=== PATIENT | female | born 1990 | race Caucasian/White ===

== ENCOUNTER 2022-07-07 15:54 | Outpatient (CLI) | payer OTHER, SELFPAY ==
--- NOTE | 2022-07-07 16:00 | CRLHL7_ITS ---
For Patients: As a result of the Century Cures Act, medical imaging exams and procedure reports are released immediately into your electronic medical record. You may view this report before your referring provider. If you have questions, please contact your health care provider. INDICATION: First trimester scan, establish dates. LMP 05/04/2022. COMPARISON: None. TECHNIQUE: Real-time lao-scale imaging of the pelvis was performed. FINDINGS: Sonographic imaging demonstrates a single living intrauterine gestation. The embryo has a regular cardiac rate measuring 168 beats per minute. The embryo`s crown-rump length measurement of 2.2 cm corresponds to a gestational age of 8 weeks 6 days with a sonographic due date of 02/10/2023. There is a normal-appearing yolk sac. There is a 0.4 x 0.1 x 0.2 cm umbilical cord cyst. The placenta has not yet developed. There is a 1.1 x 0.8 x 0.5 cm subchorionic hemorrhage along the superior aspect of the gestational sac. Retroverted uterus. The cervix appears closed. The right ovary measures 2.7 x 1.3 x 1.2 cm and the left ovary measures 3.1 x 2.0 x 1.7 cm. There is a 1.5 cm corpus luteum in the left ovary. No free fluid in the cul-de-sac. IMPRESSION: 1. Single living intrauterine gestation with crown rump length 2.2 cm which corresponds to a gestational age of 8 weeks 6 days with a sonographic due date of 02/10/2023. 2. The clinical gestational age by LMP is 9 weeks 1 day. 3. Small subchorionic hemorrhage. 4. Subcentimeter umbilical cord cyst. Dictated by Erin Ruvalcaba MD @ 07/07/2022 8:54:40 PM (Electronically Signed)
== END 2022-07-07 15:55 | disposition home or self-care (01) ==
LOC: US 15:55
PROVIDERS: Visit Provider Physician Assistant
DX: Z34.91 Encounter for supervision of normal pregnancy, unspecified, first trimester (principal); O20.9 Hemorrhage in early pregnancy, unspecified; Z3A.09 9 weeks gestation of pregnancy
CPT/HCPCS: 76817; 80076; 86592; 86703; 86762; 86787; 86803; 86850; 86900; 86901; 87086; 87340; 87491; 87591

== ENCOUNTER 2022-07-23 15:15 | Outpatient (CLI) | payer OTHER, SELFPAY ==
[2022-07-23 16:23] LABS: Chloride* 107 mmol/L (96-114); Sodium* 138 mmol/L (135-149)
[2022-07-23 16:24] LABS: Potassium* 3.8 mmol/L (3.6-5.1)
[2022-07-23 16:26] LABS: Carbon Dioxide* 24 mmol/L (20-32); Creatinine* 0.5 mg/dL (0.5-1.5); Estimated Glomerular Filt Rate 129 ml/min
[2022-07-23 16:27] LABS: Blood Urea Nitrogen* 9 mg/dL (5-24); Calcium* 9.4 mg/dL (8.4-10.6); Glucose* 95 mg/dL (60-115)
== END 2022-07-23 15:16 | disposition home or self-care (01) ==
PROVIDERS: Visit Provider Obstetrics & Gynecology
DX: O21.1 Hyperemesis gravidarum with metabolic disturbance (principal)
CPT/HCPCS: 80048

== ENCOUNTER 2022-07-24 09:46 | Outpatient (CLI) | payer OTHER, SELFPAY ==
[2022-07-24 09:59] VITALS: BP 113/75; PULSE 97; RESP 16; O2SAT 93
--- NOTE | 2022-07-24 10:15 | CRLHL7_ITS ---
For Patients: As a result of the Century Cures Act, medical imaging exams and procedure reports are released immediately into your electronic medical record. You may view this report before your referring provider. If you have questions, please contact your health care provider. Indication: PICC placement Technique: Chest 1 view Comparison: None Findings/Impression: Cardiovascular and mediastinum: Heart size and vasculature are normal in caliber and appearance. Mediastinum is within normal limits. Left-sided PICC is at the junction of the superior vena cava and right atrium. Lungs and pleural space: Lungs are clear. No sign of infiltrate or mass. No sign of pleural effusion. No pneumothorax. Bones and soft tissues: No significant findings. Dictated by Ramón Scruggs MD @ 07/24/2022 11:34:01 AM (Electronically Signed)
--- NOTE | 2022-07-24 10:15 | CRLHL7_ITS ---
For Patients: As a result of the Cures Act, medical imaging exams and procedure reports are released immediately into your electronic medical record. You may view this report before your referring provider. If you have questions, please contact your health care provider. Indication: Hyperemesis Technique: Sonographic images of the left basilic vein and left internal jugular vein submitted. IMPRESSION: Sonographic guidance for left arm PICC line placement. Dictated by Evens Marmolejo MD @ 07/24/2022 11:23:23 AM (Electronically Signed)
[2022-07-24] MEDS: MULTIPLE VITAMINS INJECTION 10 ML in LACTATED RINGERS 1000 ML 1,000 ML 505 ML IV (11:47)
[2022-07-24] MEDS: ONDANSETRON 2 MG/ML inj 4 MG IVP (11:50)
[2022-07-24 13:01] VITALS: BP 121/80; PULSE 81; RESP 16; O2SAT 99
== END 2022-07-24 13:02 | disposition home or self-care (01) ==
PROVIDERS: Visit Provider Obstetrics & Gynecology
DX: O21.1 Hyperemesis gravidarum with metabolic disturbance (principal)
CPT/HCPCS: 36573; C1751; J2405; J7120

== ENCOUNTER 2022-07-26 20:28 | Emergency (ER) | payer OTHER, SELFPAY ==
[2022-07-26 20:52] VITALS: BP 138/84; PULSE 95; RESP 18; TEMP 36.7; O2SAT 97; BMI 24.2
--- NOTE | 2022-07-26 21:44 | ED.GENADULT ---
HPI - General Adult General Time Seen by Provider: 21:44 Date Seen: 07/26/22 Chief complaint: Unspecified Complaint, Adult Stated complaint: Chest Pain+Pic Line+ Time Seen by Provider: 07/26/22 21:34 Source: patient Mode of arrival: ambulatory Limitations: no limitations History of Present Illness HPI narrative: Patient is a pleasant 32-year-old female who has had hyperemesis she has a PICC line in her left arm she had some tenderness to her chest and the nursing staff wanted her checked out. She has had no leg swelling edema had no shortness of breath, her O2 sat here is excellent at 97%. She denied any bleeding or clotting problems. She has had no fevers chills cough. She has been doing well with her other than the hyperemesis. Skin Zofran as well. Related Data Home Medications Medication Instructions Recorded Confirmed docosahexaenoic acid 200 mg mg PO 07/07/22 07/07/22 capsule ( DHA) Previous Rx's Medication Instructions Recorded ondansetron HCl 4 mg tablet 4 mg PO Q6H PRN nausea and 06/26/22 vomiting #30 tabs ondansetron HCl 8 mg tablet 8 mg PO Q8H PRN nausea and 07/07/22 vomiting #30 tabs promethazine 25 mg tablet 25 mg PO Q6H PRN nausea and 07/17/22 vomiting #30 tabs Allergies Allergy/AdvReac Type Severity Reaction Status Date / Time No Known Drug Allergies Allergy Verified 07/26/22 20:57 Review of Systems Status of ROS: Reports: 6 or more systems reviewed and unremarkable except as noted in History and below PFSH PFSH Medical History Digestive problems Exercise-induced asthma Generalized anxiety disorder History of abnormal cervical Papanicolaou smear History of cholestasis during History of Clostridioides difficile colitis History of hemorrhage History of vaginal delivery History of varicella Hyperemesis gravidarum with dehydration Nausea and vomiting during (06/2021) depression Surgical History History of colonoscopy History of third molar tooth extraction History of tonsillectomy Family History Aunt Ovarian cancer Paternal Grandfather High cholesterol Aunt Breast cancer 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 . Smoking Status: Smoker, status unknown Little interest or pleasure in doing things: nearly every day Feeling down, depressed, or hopeless: not at all Exam Narrative: Exam Narrative: Objective: Patient's vital signs are unremarkable O2 sat is excellent 97% in general she is in no apparent distress, noncyanotic HEENT is no facial asymmetry neck is supple chest is clear no rales or wheezing, heart rhythm regular without murmur. With nursing staff present cardiac examination was normal, she does have chest wall palpation tenderness over the left midclavicular line just above the breast line on the left. It is diffuse. No crepitus. Feels similar to what she is experiencing. Lower extremities show no swelling edema Vital signs unremarkable as mention. Const: Vital Signs, click to edit/add: Vital Signs - 24 hr 07/26/22 20:52 07/26/22 21:52 Temperature 98.1 F 98.1 F Pulse Rate [Pulse Oximeter] 95 95 Respiratory Rate 18 18 Blood Pressure [Ri ght Upper Arm] 138/84 138/84 Pulse Oximetry 97 Oxygen Delivery Me thod Room Air Course Vital Signs Vital signs: Initial Vital Signs Temperature 98.1 F 07/26/22 20:52 Temperature Source Temporal Artery Scan 07/26/22 20:52 Pulse Rate 95 07/26/22 20:52 Pulse Rhythm 07/26/22 20:52 Respiratory Rate 18 07/26/22 20:52 Blood Pressure 138/84 07/26/22 20:52 Blood Pressure Mean 102 07/26/22 20:52 Blood Pressure Position Sitting 07/26/22 20:52 Pulse Oximetry 97 07/26/22 20:52 Oxygen Delivery Method 07/26/22 20:52 Vital Signs Temperature 98.1 F 07/26/22 20:52 Pulse Rate 95 07/26/22 20:52 Respiratory Rate 18 07/26/22 20:52 Blood Pressure 138/84 07/26/22 20:52 Pulse Oximetry 97 07/26/22 20:52 Oxygen Delivery Method 07/26/22 20:52 Temperature 98.1 F 07/26/22 21:52 Pulse Rate 95 07/26/22 21:52 Respiratory Rate 18 07/26/22 21:52 Blood Pressure 138/84 07/26/22 21:52 Pulse Oximetry 97 07/26/22 20:52 Oxygen Delivery Method 07/26/22 20:52 Medical Decision Making [facility] Narrative Medical decision making narrative: Patient is 12 weeks estimated gestational age with the with him history of hyperemesis, with a PICC line. The PICC line itself looks very good is in good position, Bailee has normal lung exam and cardiac exam. She does have definite chest wall tenderness on the left side of the chest wall. There is no oozing ecchymosis no crepitus. No history of trauma. Lower extremities show no swelling or edema At this point I think this is a soft tissue chest wall inflammation inflammatory condition. The PICC line looks intact. It has been flushing well. I think I would not re-x-ray she just had an x-ray PICC line. There does appear to have been any positional change. Recommend monitoring observation Tylenol and warm pack to the chest wall if she has continued problems or concerns she can always return to the ED Discharge Plan Discharge Clinical Impression: Acute chest wall pain, Patient Disposition: Home, Self-Care Condition: Stable Additional Instructions: Observe, warm pack to the chest, Tylenol, update OB in the next 12:48 p.m., certainly sooner changes or concerns can always return to the ED. Activity Level: Light activity Discharge Diet: Regular Prescriptions: No Action DHA 200 mg capsule PO ondansetron HCl 8 mg tablet 8 mg PO Q8H PRN (Reason: nausea and vomiting) Qty: 30 1RF ondansetron HCl 4 mg tablet 4 mg PO Q6H PRN (Reason: nausea and vomiting) Qty: 30 0RF promethazine 25 mg tablet 25 mg PO Q6H PRN (Reason: nausea and vomiting) Qty: 30 1RF Follow Up/Referrals: Provider,Not a Local [Primary Care Provider] - Stand Alone Forms: [employer] Info Instructions
[2022-07-26 21:52] VITALS: BP 138/84; PULSE 95; RESP 18; TEMP 36.7
== END 2022-07-26 21:54 | disposition home or self-care (01) ==
LOC: ED 21:49
PROVIDERS: Emergency Provider Family Medicine
DX: R07.89 Other chest pain (principal); Z3A.12 12 weeks gestation of pregnancy
CPT/HCPCS: 99283

== ENCOUNTER 2022-07-28 15:56 | Outpatient (CLI) | payer OTHER, SELFPAY ==
--- NOTE | 2022-07-28 16:00 | CRLHL7_ITS ---
For Patients: As a result of the Century Cures Act, medical imaging exams and procedure reports are released immediately into your electronic medical record. You may view this report before your referring provider. If you have questions, please contact your health care provider. INDICATION: Follow-up umbilical cord cyst COMPARISON: 07/07/2022 TECHNIQUE: Real-time lao-scale imaging of the pelvis was performed. FINDINGS: Sonographic imaging demonstrates a single living intrauterine gestation. The embryo demonstrates a regular cardiac rate measuring 165 beats per minute. The embryo`s crown-rump length measurement of 5.6 cm corresponds to a gestational age of 12 weeks 2 days with a sonographic due date of 02/07/2023. The yolk sac is not visualized. There are no gross abnormalities noted within the embryo at this early state of development. Previously noted umbilical cord cyst has since resolved. The gestational sac has a normal appearance. Resolution of the previously noted perigestational hemorrhage. The amount of fluid within the sac appears appropriate for gestational age. IMPRESSION: Resolution of previously noted umbilical cord cyst and subchorionic hemorrhage. Dictated by Evens Marmolejo MD @ 07/29/2022 3:36:29 PM (Electronically Signed)
== END 2022-07-28 15:57 | disposition home or self-care (01) ==
LOC: US 15:56
PROVIDERS: Visit Provider Physician Assistant
DX: O36.8990 Maternal care for other specified fetal problems, unspecified trimester, not applicable or unspecified (principal)
CPT/HCPCS: 76816

== ENCOUNTER 2022-08-12 14:51 | Emergency (ER) | payer OTHER, SELFPAY ==
[2022-08-12 15:12] VITALS: BP 113/74; PULSE 78; RESP 16; TEMP 36.5; O2SAT 97; BMI 24.5
--- NOTE | 2022-08-12 15:28 | PC.NURSE ---
Called PICC STAT ([phone])- Left message to see if they are able to order an X-ray to see if PICC has been pulled out or if patient is able to use PICC. They should be calling back shortly per the manager outreach who took the phone call.
--- NOTE | 2022-08-12 15:44 | CRLHL7_ITS ---
For Patients: As a result of the Century Cures Act, medical imaging exams and procedure reports are released immediately into your electronic medical record. You may view this report before your referring provider. If you have questions, please contact your health care provider. INDICATION: PICC line placement confirmation. TECHNIQUE: Chest 1 view(s) COMPARISON: Chest radiograph dated 07/24/2022. FINDINGS/IMPRESSION: Left PICC tip projects over the upper to mid SVC. Cardiomediastinal silhouette and pulmonary vasculature are normal. No focal consolidation. No significant layering pleural effusion, no pneumothorax. Dictated by Leigh Murdock MD @ 08/12/2022 4:19:31 PM (Electronically Signed)
--- NOTE | 2022-08-12 15:50 | ED.GENADULT ---
HPI - General Adult General Time Seen by Provider: 15:50 Date Seen: 08/12/22 Stated complaint: Picc Line Issues Time Seen by Provider: 08/12/22 15:26 Source: patient Mode of arrival: ambulatory Limitations: no limitations History of Present Illness HPI narrative: Bailee is a 32-year-old GP 2p1 at around 14 weeks presents emerged department via private car with PICC line problem. Patient states in her 1st she had hyperemesis gravidarum for about 3 weeks, this pain has persisted, she has had a PICC line in for 19 days, she has a home nurse that checks on it, nurse noticed there was some bleeding and that it was pulled back about 3.5 cm, concerns about placement she was sent emergency department. Patient has been doing well otherwise. No concerns. Related Data Home Medications Medication Instructions Recorded Confirmed docosahexaenoic acid 200 mg mg PO 07/07/22 07/28/22 capsule ( DHA) Previous Rx's Medication Instructions Recorded promethazine 25 mg tablet 25 mg PO Q6H PRN nausea and 07/17/22 vomiting #30 tabs Allergies Allergy/AdvReac Type Severity Reaction Status Date / Time No Known Drug Allergies Allergy Verified 08/12/22 15:20 Review of Systems Status of ROS: Reports: 10 or more systems reviewed and unremarkable except as noted in History and below PFSH PFS Medical History Digestive problems Exercise-induced asthma Generalized anxiety disorder History of abnormal cervical Papanicolaou smear History of cholestasis during History of Clostridioides difficile colitis History of hemorrhage History of vaginal delivery History of varicella Hyperemesis gravidarum with dehydration Nausea and vomiting during (06/2021) depression Surgical History History of colonoscopy History of third molar tooth extraction History of tonsillectomy Family History Aunt Ovarian cancer Paternal Grandfather High cholesterol Aunt Breast cancer 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 Little interest or pleasure in doing things: nearly every day Feeling down, depressed, or hopeless: not at all Exam Narrative: Exam Narrative: General: No obvious distress, laying comfortably HEENT: Pupils equal round reactive to light, extraocular muscles intact Neck: Supple, full range of motion Lungs: Clear to auscultation bilaterally Heart: Normal sinus rhythm S1-S2 Abdomen: Nontender to palpation Muscle skeletal: PICC line placed in the left antecubital, no swelling, bruising or bleeding Neuro: Alert awake and oriented x3 Const: Vital Signs, click to edit/add: Vital Signs - 24 hr 08/12/22 15:12 Temperature 97.7 F Pulse Rate [Pulse Oximeter] 78 Respiratory Rate 16 Blood Pressure [Ri ght Upper Arm] 113/74 Pulse Oximetry 97 Oxygen Delivery Me thod Room Air Course Course Hospital Course: 4:00 pM: AIDET performed. Vitals are normal at this time, workup will include a XR chest portable one view to make sure proper placement of PICC line. No other labs to be done obtain at this time. Reevaluation(s) Reevaluation #1: patient updated on her imaging results. FINDINGS/IMPRESSION: Left PICC tip projects over the upper to mid SVC. Cardiomediastinal silhouette and pulmonary vasculature are normal. No focal consolidation. No significant layering pleural effusion, no pneumothorax. Time: 16:24 Reevaluation #2: PICC line is found to be in the upper to mid SVC, patient would be able to use this for IV fluids, per PICC line RN, able to flush line at this time. They will reach out to her tomorrow. Plan to discharge home, she should follow up as scheduled for IV infusions and scheduled OB appointments, reasons return given. Time: 16:51 Vital Signs Vital signs: Initial Vital Signs Temperature 97.7 F 08/12/22 15:12 Temperature Source Temporal Artery Scan 08/12/22 15:12 Pulse Rate 78 08/12/22 15:12 Pulse Rhythm 08/12/22 15:12 Pulse Strength 3+ Normal 08/12/22 15:12 Respiratory Rate 16 08/12/22 15:12 Blood Pressure 113/74 08/12/22 15:12 Blood Pressure Mean 87 08/12/22 15:12 Blood Pressure Position Sitting 08/12/22 15:12 Pulse Oximetry 97 08/12/22 15:12 Oxygen Delivery Method 08/12/22 15:12 Vital Signs Temperature 97.7 F 08/12/22 15:12 Pulse Rate 78 08/12/22 15:12 Respiratory Rate 16 08/12/22 15:12 Blood Pressure 113/74 08/12/22 15:12 Pulse Oximetry 97 08/12/22 15:12 Oxygen Delivery Method 08/12/22 15:12 Temperature 97.7 F 08/12/22 15:12 Pulse Rate 78 08/12/22 15:12 Respiratory Rate 16 08/12/22 15:12 Blood Pressure 113/74 08/12/22 15:12 Pulse Oximetry 97 08/12/22 15:12 Oxygen Delivery Method 08/12/22 15:12 Discharge Plan Discharge Clinical Impression: S/P PICC central line placement Patient Disposition: Home, Self-Care Condition: Improved Instructions: How to Care for Your PICC (Peripherally Inserted Central Catheter) (ED) Prescriptions: No Action DHA 200 mg capsule PO Hold Instructions: Doctor's Order promethazine 25 mg tablet 25 mg PO Q6H PRN (Reason: nausea and vomiting) Qty: 30 1RF Hold Instructions: Order Change Follow Up/Referrals: Provider,Not a Local [Primary Care Provider] - Stand Alone Forms: [employer] Info Instructions
--- NOTE | 2022-08-12 16:50 | ED.NURSE ---
Call to PICC with XR result tip placement upper to mid SVC. Per PICC, ok to use for now for fluids as long as line has good blood return. PICC will reach out to patient and discuss line exchange as preferred placement is mid to low SVC. Dr. Duran and Pt updated.
== END 2022-08-12 17:16 | disposition home or self-care (01) ==
PROVIDERS: Emergency Provider Student in an Organized Health Care Education/Training Program
DX: T82.594A Other mechanical complication of infusion catheter, initial encounter (principal); Z3A.14 14 weeks gestation of pregnancy
CPT/HCPCS: 71045; 99283; 99284

== ENCOUNTER 2022-08-14 07:10 | Outpatient (CLI) | payer OTHER, SELFPAY ==
[2022-08-14 07:15] VITALS: BP 108/89; PULSE 83; RESP 16; TEMP 37; O2SAT 96
--- NOTE | 2022-08-14 07:15 | CRLHL7_ITS ---
For Patients: As a result of the Century Cures Act, medical imaging exams and procedure reports are released immediately into your electronic medical record. You may view this report before your referring provider. If you have questions, please contact your health care provider. INDICATION: Line placement. TECHNIQUE: AP portable seated chest x-ray. COMPARISON: August 12, 2022. FINDINGS: Left PICC line with its tip in the low superior vena cava. Clear lungs. Normal heart size. Normal included skeleton. IMPRESSION: Left PICC line with its tip in the low superior vena cava. Dictated by Reji Calle MD @ 08/14/2022 9:11:10 AM (Electronically Signed)
--- NOTE | 2022-08-14 07:15 | CRLHL7_ITS ---
For Patients: As a result of the Cures Act, medical imaging exams and procedure reports are released immediately into your electronic medical record. You may view this report before your referring provider. If you have questions, please contact your health care provider. INDICATION: Replace current left-sided PICC line. TECHNIQUE: Ultrasound guidance was utilized for replacement of the left-sided PICC line. FINDINGS : A single spot image was obtained of the left basilic vein by report. Ultrasound-guided assistance was utilized for replacement of a left PICC line. IMPRESSION: Ultrasound-guided assistance for left PICC line replacement. Dictated by Reji Calle MD @ 08/14/2022 10:20:54 AM (Electronically Signed)
[2022-08-14] MEDS: MULTIPLE VITAMINS INJECTION 10 ML in LACTATED RINGERS 1000 ML 1,000 ML 505 ML IV (09:25)
== END 2022-08-14 11:25 | disposition home or self-care (01) ==
PROVIDERS: Visit Provider Obstetrics & Gynecology
DX: O21.1 Hyperemesis gravidarum with metabolic disturbance (principal); Z3A.14 14 weeks gestation of pregnancy
CPT/HCPCS: 36573; C1751; J2405; J7120

== ENCOUNTER 2022-09-22 13:55 | Outpatient (CLI) | payer OTHER, SELFPAY ==
--- NOTE | 2022-09-22 14:00 | CRLHL7_ITS ---
For Patients: As a result of the Century Cures Act, medical imaging exams and procedure reports are released immediately into your electronic medical record. You may view this report before your referring provider. If you have questions, please contact your health care provider. INDICATION: Evaluate anatomy. COMPARISON: 07/28/2022, 07/07/2022 TECHNIQUE: Real time lao scale imaging of the fetus was performed as well as color Doppler analysis of the umbilical vessels. FINDINGS: Sonographic imaging demonstrates a single living intrauterine gestation. Fetus demonstrates a regular cardiac rate of 149 beats per minute. Fetus has a breech position. The placenta lies anteriorly without evidence of placenta previa. The edge of the placenta is located 5.5 cm from the internal cervical os. Amniotic fluid volume appears normal. Single deepest vertical pocket: 4.3 cm. The cervix is closed and measures 3.7 cm in length. The composite ultrasound gestational age is calculated at 20 weeks 0 days with an estimated sonographic due date of 02/09/2023. The estimated weight is 344 grams which lies at the 54th %. The following biometric measurements were obtained: Biparietal diameter: 4.6 cm/19 weeks 5 days 34th% Head circumference: 16.7 cm/19 weeks 3 days 12th% Abdominal circumference: 15.5 cm/20 weeks 4 days 61st% Femur length: 3.3 cm/20 weeks 1 day 43rd% The HC/AC ratio measures: 1.08 range (1.08-1.25) On anatomic survey, there is a normal appearance of the cerebral ventricles, cavum septi pellucidi, cisterna magna and cerebellum. The nose, lips, and facial profile appear normal. The cervical, thoracic and lumbar spine are well visualized and appear normal. There is a normal four-chamber heart view and the left and right ventricular outflow tracts appear normal. The diaphragm and stomach appear normal. The kidneys and bladder also appear normal. There is a normal three-vessel cord and cord insertion site. The four extremities appear normal. IMPRESSION: Normal OB ultrasound exam with concordance of clinical and sonographic dating. No intrinsic abnormalities noted on anatomic survey. Dictated by Evens Marmolejo MD @ 09/22/2022 3:31:06 PM (Electronically Signed)
== END 2022-09-22 13:56 | disposition home or self-care (01) ==
LOC: US 13:56
PROVIDERS: Visit Provider Advanced Practice Midwife
DX: Z34.92 Encounter for supervision of normal pregnancy, unspecified, second trimester (principal); Z3A.20 20 weeks gestation of pregnancy
CPT/HCPCS: 76805; 87210

== ENCOUNTER 2022-09-28 13:55 | Outpatient (CLI) | payer OTHER, SELFPAY ==
[2022-10-01 10:31] LABS: HSV 1 Subtype by PCR Not Detected; HSV 2 Subtype by PCR Not Detected; Herpes Simplex Subtype Source vaginal
== END 2022-09-28 13:56 | disposition home or self-care (01) ==
PROVIDERS: Visit Provider Advanced Practice Midwife
DX: Z34.92 Encounter for supervision of normal pregnancy, unspecified, second trimester (principal); Z3A.21 21 weeks gestation of pregnancy
CPT/HCPCS: 87210; 87529

== ENCOUNTER 2022-10-16 13:59 | Emergency (ER) | payer OTHER, SELFPAY ==
[2022-10-16 14:14] VITALS: BP 106/68; PULSE 102; RESP 16; TEMP 36.8; O2SAT 97; BMI 27.3
--- NOTE | 2022-10-16 14:24 | CRLHL7_ITS ---
For Patients: As a result of the Century Cures Act, medical imaging exams and procedure reports are released immediately into your electronic medical record. You may view this report before your referring provider. If you have questions, please contact your health care provider. INDICATION: PICC location. TECHNIQUE: Chest 1 views. COMPARISON: July 2022. FINDINGS: Left-sided PICC with tip overlying the expected location of the mid SVC. Lungs: Low lung volumes. No consolidation. The tracheobronchial tree and hilar structures are unremarkable. Pleura: No pleural effusion or pneumothorax. Heart and Mediastinum: Normal heart size. The great vessels of the thorax are unremarkable. Bones: No acute displaced osseous process. IMPRESSION: No consolidation. Left-sided PICC with tip overlying the expected location of the mid SVC. Dictated by Evens Gan MD @ 10/16/2022 3:09:51 PM (Electronically Signed)
--- NOTE | 2022-10-16 16:38 | ED_ITS ---
HPI - General Adult General Chief complaint: Unspecified Complaint, Adult Stated complaint: Picc Line Time Seen by Provider: 10/16/22 14:02 Source: patient Mode of arrival: ambulatory Limitations: no limitations History of Present Illness HPI narrative: female coming in today concerned about her PICC line placement.? She was seen by her PICC line nurse today who commented that the PICC line had been pulled approximately 3 cm from where it had been previously.? Patient comes in today for a x-ray.? She has no concerns.? She continues to get 2 L of fluids daily. Related Data Home Medications Medication Instructions Recorded Confirmed No Known Home Medications 10/16/22 10/16/22 Allergies Allergy/AdvReac Type Severity Reaction Status Date / Time chlorhexidine Allergy Mild rash, Verified 09/28/22 13:38 swelling, redness Review of Systems Status of ROS: Reports: 6 or more systems reviewed and unremarkable except as noted in History and below PFSH PFSH Medical History Digestive problems ?K92.9 - Disease of digestive system, unspecified (ICD-10) Exercise-induced asthma ?J45.990 - Exercise induced bronchospasm (ICD-10) Generalized anxiety disorder ?F41.1 - Generalized anxiety disorder (ICD-10) History of abnormal cervical Papanicolaou smear ?Z87.42 - Personal history of other diseases of the female genital tract (ICD-10) History of cholestasis during ?Z87.59 - Personal history of other complications of , childbirth and the puerperium (ICD-10) ?Z87.19 - Personal history of other diseases of the digestive system (ICD-10) History of Clostridioides difficile colitis ?Z86.19 - Personal history of other infectious and parasitic diseases (ICD- 10) History of hemorrhage ?Z87.59 - Personal history of other complications of , childbirth and the puerperium (ICD-10) History of vaginal delivery History of varicella ?Z86.19 - Personal history of other infectious and parasitic diseases (ICD- 10) Hyperemesis gravidarum with dehydration ?O21.1 - Hyperemesis gravidarum with metabolic disturbance (ICD-10) Nausea and vomiting during (06/2021) ?O21.9 - Vomiting of , unspecified (ICD-10) depression ?F53.0 - depression (ICD-10) Surgical History History of colonoscopy ?Z98.890 - Other specified postprocedural states (ICD-10) History of third molar tooth extraction ?K08.409 - Partial loss of teeth, unspecified cause, unspecified class (ICD- 10) History of tonsillectomy ?Z90.89 - Acquired absence of other organs (ICD-10) Family History Aunt Ovarian cancer Paternal Grandfather High cholesterol Aunt Breast cancer 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 . Smoking Status: Never smoker Little interest or pleasure in doing things: nearly every day Feeling down, depressed, or hopeless: not at all Exam Narrative: Exam Narrative: PICC line still in place on her left arm. Const: Vital Signs, click to edit/add: Vital Signs - 24 hr 10/16/22 14:14 Temperature 98.3 F Pulse Rate [Pulse Oximeter] 102 H Respiratory Rate 16 Blood Pressure [Ri ght Upper Arm] 106/68 Pulse Oximetry 97 Oxygen Delivery Me thod Room Air Course Course Hospital Course: Chest x-ray showing PICC with tip overlying the expected location in the mid SVC. Vital Signs Vital signs: Initial Vital Signs Temperature 98.3 F 10/16/22 14:14 Temperature Source Temporal Artery Scan 10/16/22 14:14 Pulse Rate 102 H 10/16/22 14:14 Pulse Rhythm Regular 10/16/22 14:14 Respiratory Rate 16 10/16/22 14:14 Blood Pressure 106/68 10/16/22 14:14 Blood Pressure Mean 80 10/16/22 14:14 Blood Pressure Position Sitting 10/16/22 14:14 Pulse Oximetry 97 10/16/22 14:14 Oxygen Delivery Method Room Air 10/16/22 14:14 Vital Signs Temperature 98.3 F 10/16/22 14:14 Pulse Rate 102 H 10/16/22 14:14 Respiratory Rate 16 10/16/22 14:14 Blood Pressure 106/68 10/16/22 14:14 Pulse Oximetry 97 10/16/22 14:14 Oxygen Delivery Method Room Air 10/16/22 14:14 Temperature 98.3 F 10/16/22 14:14 Pulse Rate 102 H 10/16/22 14:14 Respiratory Rate 16 10/16/22 14:14 Blood Pressure 106/68 10/16/22 14:14 Pulse Oximetry 97 10/16/22 14:14 Oxygen Delivery Method Room Air 10/16/22 14:14 Medical Decision Making MDM Narrative Medical decision making narrative: 32 Year old female with hyperemesis gravidarum with continue IV fluid hydration.? PICC line in appropriate place.? Nothing further done. ?Patient discharged with a copy of her chest x-ray report. Medical Records Medical records reviewed: Yes I reviewed the patient's medical records Imaging Data Chest x-ray: Attestation: I have reviewed the pertinent imaging results. Radiologist's impression: Chest 1 views. COMPARISON: July 2022. FINDINGS: Left-sided PICC with tip overlying the expected location of the mid SVC. Lungs: Low lung volumes. No consolidation. The tracheobronchial tree and hilar structures are unremarkable. Pleura: No pleural effusion or pneumothorax. Heart and Mediastinum: Normal heart size. The great vessels of the thorax are unremarkable. Bones: No acute displaced osseous process. IMPRESSION: No consolidation. Left-sided PICC with tip overlying the expected location of the mid SVC. Discharge Plan Discharge Clinical Impression: S/P PICC central line placement Patient Disposition: Home, Self-Care Condition: Stable Prescriptions: No Action No Known Home Medications Follow Up/Referrals: Provider,Not a Local [Primary Care Provider] -
== END 2022-10-16 15:00 | disposition home or self-care (01) ==
LOC: ED 14:51
PROVIDERS: Emergency Provider Family Medicine
DX: Z45.2 Encounter for adjustment and management of vascular access device (principal)
CPT/HCPCS: 71045; 99283

== ENCOUNTER 2022-10-19 14:11 | Outpatient (CLI) | payer OTHER, SELFPAY | END 2022-10-19 14:12 | disposition home or self-care (01) | PROVIDERS: Visit Provider Obstetrics & Gynecology | DX: Z34.92 Encounter for supervision of normal pregnancy, unspecified, second trimester (principal); Z3A.24 24 weeks gestation of pregnancy | CPT/HCPCS: 80076; 82239 ==

== ENCOUNTER 2022-10-22 15:18 | Outpatient (CLI) | payer OTHER, SELFPAY | END 2022-10-22 15:19 | disposition home or self-care (01) | PROVIDERS: PCP Obstetrics & Gynecology; Referring Provider Obstetrics & Gynecology; Visit Provider Obstetrics & Gynecology | DX: A60.00 Herpesviral infection of urogenital system, unspecified (principal) | CPT/HCPCS: 86694; 86695; 86696 ==

== ENCOUNTER 2022-11-16 15:26 | Outpatient (CLI) | payer OTHER, SELFPAY | END 2022-11-16 15:27 | disposition home or self-care (01) | LOC: NFLDREF 15:27 | PROVIDERS: PCP Obstetrics & Gynecology; Visit Provider Obstetrics & Gynecology | DX: Z34.93 Encounter for supervision of normal pregnancy, unspecified, third trimester (principal); Z3A.28 28 weeks gestation of pregnancy | CPT/HCPCS: 86592; 86850; J2791 ==

== ENCOUNTER 2023-01-08 13:19 | Outpatient (CLI) | payer OTHER, SELFPAY ==
[2023-01-08] VITALS (11 sets, daily range): BP systolic 118–120; BP diastolic 70–75; PULSE 92–99; RESP 18; TEMP 36.8; O2SAT 96–98
[2023-01-08 14:15] LABS: Basophils Absolute Auto 0.03 K/uL (0.00-0.30); Basophils Percent Auto 0.4 % (0.0-3.0); Eosinophils Absolute Auto 0.04 K/uL (0.00-0.50); Eosinophils Percent Auto 0.5 % (0.0-7.0); Hemoglobin* 11.2 gm/dL (12.0-16.0); Immature Granulocytes Abs Auto 0.03 K/uL (0.00-0.30); Immature Granulocytes Pct Auto 0.4 %; Lymphocytes Percent Auto 17.1 % (20-44); Mean Corpuscular HGB Conc 33 gm/dL (32-36); Mean Corpuscular Hemoglobin 26 pg (26-34); Mean Corpuscular Volume 80 fL (80-100); Neutrophils Percent Auto 74.6 % (42.0-72.0); Platelet Count* 199 K/uL (140-440); RDW Coefficient of Variation % 13.6 % (11.5-15.5); Red Blood Count 4.27 m/uL (4.00-5.20); White Blood Count* 7.82 K/uL (4.50-11.00)
[2023-01-08 14:24] LABS: Slide Review Reflex No
[2023-01-08 14:30] LABS: Appearance Urine Clear (Clear); Bilirubin Urine Negative (Negative); Blood Urine Negative (Negative); Color Urine Yellow (Yellow); Glucose Urine Trace (Negative); Ketones Urine Negative (Negative); Leukocyte Esterase Urine Negative (Negative); Nitrite Urine Negative (Negative); Protein Urine Negative (Negative); Urobilinogen Urine 0.2 (0.2-1.0)
[2023-01-08 14:44] LABS: Albumin* 3.8 g/dL (3.3-5.0); Chloride* 105 mmol/L (96-114)
[2023-01-08 14:45] LABS: Potassium* 3.8 mmol/L (3.6-5.1); Sodium* 134 mmol/L (135-149)
[2023-01-08 14:46] LABS: RBC Urine 0-2 (0-2); WBC Urine 0-2 (0-5)
[2023-01-08 14:47] LABS: Alkaline Phosphatase* 94 U/L (40-150); Aspartate Amino Transferase* 23 U/L (12-35); Bilirubin Total* 0.5 mg/dL (0.1-1.5); Blood Urea Nitrogen* 9 mg/dL (5-24); Carbon Dioxide* 20 mmol/L (20-32); Creatinine* 0.7 mg/dL (0.5-1.5); Estimated Glomerular Filt Rate 119 ml/min; Total Protein* 6.7 g/dL (6.0-8.3)
[2023-01-08 14:48] LABS: Alanine Aminotransferase* 18 U/L (4-35); Calcium* 8.8 mg/dL (8.4-10.6); Glucose* 80 mg/dL (60-115)
[2023-01-08 15:49] LABS: Amphetamine Screen Urine Negative (Negative); Barbiturate Screen Urine Negative (Negative); Benzodiazepines Screen Urine Negative (Negative); Cannabinoid Screen Urine Negative (Negative); Cocaine Screen Urine Negative (Negative); Methadone Screen Urine Negative (Negative); Methamphetamines Screen Urine Negative (Negative); Opiate Screen Urine Negative (Negative); Oxycodone Screen Urine Negative (Negative); Phencyclidine Screen Urine Negative (Negative); Tricyclic Antidepressant Urine Negative (Negative)
--- NOTE | 2023-01-08 18:20 | PC.OBNST ---
NST Note NST Note Start: 01/08/23 13:26 Freq: ONCE Status: Active Protocol: Document 01/08/23 16:23 SABAS (Rec: 01/08/23 18:20 SABAS [id number]) NST Note 2 Para (# of births) 1 EDC 02/08/23 Gestational Age In Weeks & Days 35 Weeks & 4 Days Patient Presented with Complaint(s) of Contractions/cramping,Other Reactive Yes Appropriate for Gestational Age Yes RN Tiesha Kim RN Date 01/08/23 Reactive Yes Appropriate for Gestational Age Yes JESSICA Miranda RN Date 01/08/23 OB NST charge Yes Complete NST Note via Write Note Yes The provider's electronic signature indicates the NST is reactive/appropriate for gestational age. *Note to provider: If an addendum is required, open the patient's chart and click on the note under the Nurse/Allied Health tab.
[2023-01-09 11:58] LABS: Strep B DNA Probe NEGATIVE (Negative)
--- NOTE | 2023-01-09 12:43 | W.PM.OBO ---
OB Outpatient HPI History of Present Illness Date Seen: 01/08/23 History of Present Illness: 32 year old at 35 weeks, 4 days gestation presents with chief complaint of lower pelvic pain. She had some lower uterine cramping and some sharp pains when arising from a sitting to standing position. She has had some diarrhea as well. She typically has nausea and vomiting, and has been using PICC line for IV hydration since early . She reports feeling quite sleepy at this time. Bleeding: No Contractions: Yes Discharge: No Other comments: Positive for diarrhea No fever Positive for nausea, persistent Meds Home Medications and Allergies Allergies Allergy/AdvReac Type Severity Reaction Status Date / Time chlorhexidine Allergy Mild rash, Verified 12/31/22 07:51 swelling, redness PFSH Medical History Digestive problems ?K92.9 - Disease of digestive system, unspecified (ICD-10) Exercise-induced asthma ?J45.990 - Exercise induced bronchospasm (ICD-10) Generalized anxiety disorder ?F41.1 - Generalized anxiety disorder (ICD-10) History of abnormal cervical Papanicolaou smear ?Z87.42 - Personal history of other diseases of the female genital tract (ICD-10) History of cholestasis during ?Z87.59 - Personal history of other complications of , childbirth and the puerperium (ICD-10) ?Z87.19 - Personal history of other diseases of the digestive system (ICD-10) History of Clostridioides difficile colitis ?Z86.19 - Personal history of other infectious and parasitic diseases (ICD-10) History of hemorrhage ?Z87.59 - Personal history of other complications of , childbirth and the puerperium (ICD-10) History of vaginal delivery History of varicella ?Z86.19 - Personal history of other infectious and parasitic diseases (ICD-10) Hyperemesis gravidarum with dehydration ?O21.1 - Hyperemesis gravidarum with metabolic disturbance (ICD-10) Nausea and vomiting during (06/2021) ?O21.9 - Vomiting of , unspecified (ICD-10) depression ?F53.0 - depression (ICD-10) Surgical History History of colonoscopy ?Z98.890 - Other specified postprocedural states (ICD-10) History of third molar tooth extraction ?K08.409 - Partial loss of teeth, unspecified cause, unspecified class (ICD-10) History of tonsillectomy ?Z90.89 - Acquired absence of other organs (ICD-10) Family History Aunt Ovarian cancer Paternal Grandfather High cholesterol Aunt Breast cancer 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 . 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 living situation: I presently have a place to live Problems where you live: no known problems In the past 12 months, utilities in danger of being shut off: no In the past 12 mos, have been you worried that your food would run out before you had money to buy more?: never true In the past 12 mos, the food you bought just didn't last and you didn't have money to buy more?: never true Smoking Status: Never smoker How often does anyone, including family, friends and others, physically hurt you: How often does anyone, including family, friends and others, insult or talk down to you: How often does anyone, including family, friends and others, threaten you with harm: How often does anyone, including family, friends and others, scream or curse at you: Little interest or pleasure in doing things: not at all Feeling down, depressed, or hopeless: not at all History History 2 Elective abortions Para 1 Spontaneous abortions Hx # Term Pregnancies Ectopic pregnancies Hx # Pregnancies Multiple births Number of Living Children 1 Past Pregnancies Del. Date GA/Weeks Outcome Route wt Inf Gender Labor Lgth Anesthesia Location Provider Compli 10/28/20 37 live - full term 7 lb [address] Al braga [facility] - H&P: Exam Physical Exam Vital signs: Temp Pulse Resp BP Pulse Ox 98.2 F 96 18 118/70 97 01/08/23 13:30 01/08/23 16:11 01/08/23 13:30 01/08/23 16:11 01/08/23 14:05 Narrative: Physical exam: General: No acute distress Psych: Alert and oriented x3, appears somnolent HEENT: Normocephalic, atraumatic Neck: No cervical adenopathy, no thyromegaly Heart: Regular rate and rhythm, no murmur rub or gallop Lungs: Clear to auscultation bilaterally Abdomen: Soft, nontender, gravid Lower extremities: No edema or erythema Pelvic exam: 2 cm, long, high tracing: Baseline 120, accelerations present, no decelerations, moderate variability. Category 1 tracing. Labs Labs Laboratory Tests 01/08/23 01/08/23 01/08/23 Range/Units 14:05 14:03 13:40 WBC 7.82 (4.50-11.00) K/uL RBC 4.27 (4.00-5.20) m/uL Hgb 11.2 L (12.0-16.0) gm/dL Hct 34.0 (33.0-51.0) % MCV 80 (80-100) fL MCH 26 (26-34) pg MCHC 33 (32-36) gm/dL RDW Coeff of Efraín 13.6 (11.5-15.5) % Plt Count 199 (140-440) K/uL Neut % (Auto) 74.6 H (42.0-72.0) % Lymph % (Auto) 17.1 L (20-44) % Shannon % (Auto) 7.0 (0.0-11.0) % Eos % (Auto) 0.5 (0.0-7.0) % Baso % (Auto) 0.4 (0.0-3.0) % Neut # (Auto) 5.80 (1.7-7.0) K/uL Lymph # (Auto) 1.30 (0.90-2.90) K/uL Shannon # (Auto) 0.50 (0.00-0.90) K/UL Eos # (Auto) 0.04 (0.00-0.50) K/uL Baso # (Auto) 0.03 (0.00-0.30) K/uL Sodium 134 L (135-149) mmol/L Potassium 3.8 (3.6-5.1) mmol/L Chloride 105 (96-114) mmol/L Carbon Dioxide 20 (20-32) mmol/L BUN 9 (5-24) mg/dL Creatinine 0.7 (0.5-1.5) mg/dL Estimated GFR 119 ml/min Glucose 80 (60-115) mg/dL Calcium 8.8 (8.4-10.6) mg/dL Total Bilirubin 0.5 (0.1-1.5) mg/dL AST 23 (12-35) U/L ALT 18 (4-35) U/L Alkaline Phosphatase 94 (40-150) U/L Total Protein 6.7 (6.0-8.3) g/dL Albumin 3.8 (3.3-5.0) g/dL Urine Color Yellow (Yellow) Urine Appearance Clear (Clear) Urine pH 7.0 (5.0-8.5) Ur Specific Mica 1.020 (1.000-1.030) Urine Protein Negative (Negative) Urine Glucose (UA) Trace A (Negative) Urine Ketones Negative (Negative) Urine Blood Negative (Negative) Urine Nitrite Negative (Negative) Urine Bilirubin Negative (Negative) Urine Urobilinogen 0.2 (0.2-1.0) Ur Leukocyte Esterase Negative (Negative) Urine RBC 0-2 (0-2) Urine WBC 0-2 (0-5) Ur Squamous Epith Cells None (None-Few) Urine Bacteria None (None) Urine Opiates Screen Negative (Negative) Ur Oxycodone Screen Negative (Negative) Urine Methadone Screen Negative (Negative) Ur Propoxyphene Screen Negative (Negative) Ur Barbiturates Screen Negative (Negative) U Tricyclic Antidepress Negative (Negative) Ur Phencyclidine Scrn Negative (Negative) Ur Amphetamines Screen Negative (Negative) U Methamphetamines Scrn Negative (Negative) U Benzodiazepines Scrn Negative (Negative) Urine Cocaine Screen Negative (Negative) U Marijuana (THC) Screen Negative (Negative) Group B Strep DNA NEGATIVE (Negative) Assessment and Plan Assessment and plan (1) Pelvic pain affecting : Status: Acute Assessment and Plan: No regular contractions. Reassuring status. All laboratory testing is reassuring. Plan She was discharged home to follow up in clinic as scheduled next week.
[2023-01-09 12:50] LABS: Strep B Pen/Amox Allergy No
== END 2023-01-08 16:30 | disposition home or self-care (01) ==
LOC: OB OUT 13:19 → OB 13:20
PROVIDERS: PCP Obstetrics & Gynecology; Visit Provider Obstetrics & Gynecology
DX: O26.893 Other specified pregnancy related conditions, third trimester (principal); R10.2 Pelvic and perineal pain; Z3A.35 35 weeks gestation of pregnancy
CPT/HCPCS: 36415; 59025; 80053; 80306; 81001; 85025; 87081; 87653; 99213

== ENCOUNTER 2023-02-05 06:41 | Inpatient (IN) | payer OTHER, SELFPAY ==
[2023-02-05] VITALS (96 sets, daily range): BP systolic 76–137; BP diastolic 45–88; PULSE 53–113; RESP 16–17; TEMP 36.2–36.9; O2SAT 96–100; BMI 29.9
[2023-02-05 08:09] LABS: Basophils Absolute Auto 0.03 K/uL (0.00-0.30); Basophils Percent Auto 0.5 % (0.0-3.0); Eosinophils Absolute Auto 0.04 K/uL (0.00-0.50); Eosinophils Percent Auto 0.7 % (0.0-7.0); Hematocrit 36.7 % (33.0-51.0); Hemoglobin* 11.7 gm/dL (12.0-16.0); Immature Granulocytes Abs Auto 0.03 K/uL (0.00-0.30); Immature Granulocytes Pct Auto 0.5 %; Lymphocytes Absolute Auto 1.21 K/uL (0.90-2.90); Lymphocytes Percent Auto 20.9 % (20-44); Mean Corpuscular HGB Conc 32 gm/dL (32-36); Mean Corpuscular Hemoglobin 25 pg (26-34); Mean Corpuscular Volume 78 fL (80-100); Monocytes Percent Auto 6.9 % (0.0-11.0); Neutrophils Absolute Auto 4.07 K/uL (1.7-7.0); Neutrophils Percent Auto 70.5 % (42.0-72.0); Platelet Count* 182 K/uL (140-440); RDW Coefficient of Variation % 14.2 % (11.5-15.5); Red Blood Count 4.68 m/uL (4.00-5.20); White Blood Count* 5.78 K/uL (4.50-11.00)
[2023-02-05 08:14] LABS: Slide Review Reflex No
--- NOTE | 2023-02-05 08:15 | P.LDBA_ITS ---
Subjective History of Present Illness Time Seen by Provider: 08:30 Date Seen: 02/05/23 Narrative: HPI: Bailee is a 32-year-old 2 para 1001 at 39 and 4/7weeks gestation being admitted for elective induction of labor. Her admission history and physical was completed by Dr. Greta Morris on 01/20/2023. Her course has been complicated by issues noted in her OB problem list below. Her membranes are not ruptured. She reports sporadic uncomfortable contractions. The baby has been moving normally. The patient would like to have her water be broken to see if she would go into labor without needing Pitocin. Verbal consent for AROM obtained. If she does not have regular contractions by 2 hours after her water is broken I would recommend starting Pitocin to augment/induce her labor OB PROBLEM LIST: Spouse: Rashaad. Son Gerard. Baby: Pearl Gender 1. History of cholestasis * Baseline liver function: AST 22, ALT 21 (Bile acids not checked) * Pruritis of palms and soles at 24 weeks (10/19/22). LFTs, bile acids normal. 2. Patient desires directed blood donation from family member, does not want to receive blood from COVID vaccinated donor. * History of hemorrhage, did not require transfusion * Oscar is looking into this process with admin (08/04/22) * Form completed for [facility] [place] 08/14/22 and copy sent to Toyin Marroquin in Lab * Discussed typical use of blood products other than PRBCs in the setting of massive transfusion; cannot pursue directed donation in this case. * Her mom and sister are donating on January 25 for direct donation. They can change to a different date if needed. 3. Umbilical cord cyst * Follow-up ultrasound at her 2nd visit: Not visualized on follow-up ultrasound 4. Hyperemesis Gravidarum w/ dehydration: Has a PICC line. * Vitamin B6, Unisom, Zofran increased from 4 mg to 8 mg at 1st OB: Denies relief w/ PO zofran. * Some relief w/ phenergan but makes her drowsy. * IVF hydration in the office x3 * 07/23/22: lost 7lbs. Off work until 07/27/22. PICC line ordered, [facility] for IVF: 1-3 L LR daily, 10ml IV vitamins daily, IV zofran 4mg QID prn. * 07/23/22: Basic metabolic normal * F/U on 07/28/22: Patient has continued to work and has not been able to get IV fluids t.i.d., will take off work until 07/31/2022. Home health is coming Wednesday and Wednesday this week. * 2/6 Improving, no nausea x 4 days, planning to decrease to 1 per day by end of week * 3/7 Continued 2x per day infusions * 10/19/22. Gaining weight. * 11/30/2022: PICC line in place, doing 1L IVF at home. If she does less than this becomes Nauseated, vomiting and gets dehydrated. 5. History of depression & anxiety was treated w/ Lexapro. - 12/15/22: Has noticed the start of some similar symptoms, not ready for any intervention at this moment, would appreciate providers asking about mood in her next upcoming appointments. - 01/13 is considering starting Lexapro but wants to talk to her 1st. - If not already on medication wants to start immediately PP - Referral to [facility] sent 01/13. A 2nd referral made on 01/20/2023. 6. H/o abnl pap 2012. Last pap 04/11/2020: WNL. Pap w/ HPV at her 6 wk pp visit. 7. Suspected first episode of genital herpes infection at around 20 weeks' gestation. History of cold sores but no previous genital lesions Dx @ 21 weeks (10/16), though PCR negative Rx for initial outbreak Valtrex 500 mg BID at 36 weeks Serology pending: HSV 1 IgM and IgG = NOT a new infection Continuing pain at vestibule at 24 weeks; lidocaine ointment prescribed. has prescription and will start taking today (36.2 wk appointment) 8. Intolerant of simple sugars in large quantities. Referred to instrumentation chemist for teaching on glucose monitoring. Will do 1 week of sugar monitoring in lieu of Glucola: One minimally elevated fasting = 98, all postprandial values normal; no diabetes 9. Rh negative. RhoGam 11/16/22. 10. Exercise induced asthma. OBJECTIVE: GENERAL: Pleasant, , well groomed woman in no acute distress. VITAL SIGNS: Per electronic medical record: They are normal. HEART: Regular rate and rhythm without gallop, rub or murmur. CHEST: Clear to auscultation bilaterally. ABDOMEN: Gravid, nontender. EFM: Baseline 140s, accelerations present, decelerations absent, moderate variability, reactive. Category 1 TOCO: Q 2-5 minutes, the patient is not feeling them. SVE: 4cm/75 %/0/[ant/mid]/soft. Bergeron score 8. EXTREMITIES: No edema, cyanosis, clubbing or pain. ASSESSMENT: 32-year-old 2 para 1001 at 39 and 4/7 weeks gestation admit [facility] for elective induction of labor. PLAN: 1. Start Pitocin per induction protocol at 10:53 a.m. if the patient is not having regular contractions. 2. AROM performed at 8:53 a.m., clear fluid. 3. GBS negative 4. Planning epidural for labor analgesia 5. Blood type: B negative OB Exam Physical Exam Vital signs: Pulse BP Pulse Ox 90 116/76 97 02/05/23 06:51 02/05/23 06:51 02/05/23 06:52
[2023-02-05] MEDS: OXYTOCIN 30 unit/500 ML in NS 30 UNIT/500 ML BAG IVPB (11:15)
[2023-02-05] MEDS: LACTATED RINGERS 1000 ML 1,000 ML 124 ML IV (11:15)
[2023-02-05] MEDS: LACTATED RINGERS 1000 ML 1,000 ML 122 ML IV (13:41)
[2023-02-05] MEDS: ROPIVACAINE 0.2% 100 ml 100 ML 12 MG EPIDURAL (13:51)
[2023-02-05] MEDS: PHENYLEPHRINE 100 MCG/ML SYRINGE IVP ×2 (14:20→14:34)
--- NOTE | 2023-02-05 14:31 | PM.ANBPRC ---
[facility] Medical History Hyperemesis gravidarum with dehydration ?O21.1 - Hyperemesis gravidarum with metabolic disturbance (ICD-10) History of Clostridioides difficile colitis ?Z86.19 - Personal history of other infectious and parasitic diseases (ICD-10) History of vaginal delivery History of hemorrhage ?Z87.59 - Personal history of other complications of , childbirth and the puerperium (ICD-10) Digestive problems ?K92.9 - Disease of digestive system, unspecified (ICD-10) History of cholestasis during ?Z87.59 - Personal history of other complications of , childbirth and the puerperium (ICD-10) ?Z87.19 - Personal history of other diseases of the digestive system (ICD-10) History of varicella ?Z86.19 - Personal history of other infectious and parasitic diseases (ICD-10) History of abnormal cervical Papanicolaou smear ?Z87.42 - Personal history of other diseases of the female genital tract (ICD-10) Generalized anxiety disorder ?F41.1 - Generalized anxiety disorder (ICD-10) Nausea and vomiting during (06/2021) ?O21.9 - Vomiting of , unspecified (ICD-10) depression ?F53.0 - depression (ICD-10) Exercise-induced asthma ?J45.990 - Exercise induced bronchospasm (ICD-10) Surgical History History of tonsillectomy ?Z90.89 - Acquired absence of other organs (ICD-10) History of third molar tooth extraction ?K08.409 - Partial loss of teeth, unspecified cause, unspecified class (ICD-10) History of colonoscopy ?Z98.890 - Other specified postprocedural states (ICD-10) Family History Aunt Ovarian cancer Paternal Grandfather High cholesterol Aunt Breast cancer 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 . 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 living situation?: I presently have a place to live Problems where you live: no known problems In the past 12 months, utilities in danger of being shut off: no In the past 12 mos, have been you worried that your food would run out before you had money to buy more?: never true In the past 12 mos, the food you bought just didn't last and you didn't have money to buy more?: never true Smoking Status: Never smoker How often does anyone, including family, friends and others, physically hurt you: never How often does anyone, including family, friends and others, insult or talk down to you: never How often does anyone, including family, friends and others, threaten you with harm: never How often does anyone, including family, friends and others, scream or curse at you: never Little interest or pleasure in doing things: several days Feeling down, depressed, or hopeless: not at all Meds Home Medications and Allergies Home Medications Medication Instructions Recorded Confirmed Type PNV 22-iron 27 mg iron-folic acid 1 pkg PO DAILY 01/20/23 02/05/23 History 1 mg-docusate 50 mg-dha 250 mg pack valacyclovir 1 gram tablet 1,000 mg PO BID 01/20/23 02/05/23 History (Valtrex) Allergies Allergy/AdvReac Type Severity Reaction Status Date / Time chlorhexidine Allergy Mild rash, Verified 02/01/23 14:52 swelling, redness Results Labs Labs: Laboratory Results - last 24 hr 02/05/23 08:03 WBC 5.78 RBC 4.68 Hgb 11.7 L Hct 36.7 MCV 78 L MCH 25 L MCHC 32 RDW Coeff of Efraín 14.2 Plt Count 182 Neut % (Auto) 70.5 Lymph % (Auto) 20.9 Hand % (Auto) 6.9 Eos % (Auto) 0.7 Baso % (Auto) 0.5 Neut # (Auto) 4.07 Lymph # (Auto) 1.21 Hand # (Auto) 0.40 Eos # (Auto) 0.04 Baso # (Auto) 0.03 Abs Immat Gran (auto) 0.03 Imm/Tot Granulo (auto) 0.5 Blood Type B Negative Antibody Screen NEGATIVE Vital Signs Vital Signs: Last Vital Signs Temp 98.1 F 02/05/23 12:18 Pulse 88 02/05/23 14:28 BP 113/64 02/05/23 14:28 Pulse Ox 100 02/05/23 14:01 Weight: 84.368 kg Height: 167.64 cm Anesthesia Procedures Epidural Insertion Patient Location: OB Start Time: 13:40 Stop Time: 14:40 Start Date: 02/05/23 Stop Date: 02/05/23 Reason for Block: procedure for pain Patient Position: sitting Performed By: Mila Tubbs Preanesthetic Checklist: IV checked, risks and benefits discussed, monitors and equipment checked, timeout performed and anesthesia consent Prep: chlorhexidine gluconate Monitoring: blood pressure monitoring, continuous pulse oximetry and heart rate Approach: midline Vertebral Space: lumbar (1-5) Epidural Technique: AMRTIN saline Needle Type: Tuohy needle Injection Technique: continuous catheter Needle gauge: 17 Needle Length (cm): 10 cm Needle Insertion Depth (cm): 8 Catheter Gauge: 19 Catheter Type: multi-orifice Catheter at skin depth (cm): 14 Test Dose Result: negative and lidocaine 1.5% with epinephrine 1 to 200,000
[2023-02-05] MEDS: ePHEDrine sulfate 5 MG/ML inj 10 MG IVP (14:50)
[2023-02-05] MEDS: TRANEXAMIC ACID 100 MG/ML INJ 1000 MG IV ×2 (16:34→17:54)
[2023-02-05] MEDS: miSOPROStoL 800 MCG/4 TABLET PR (17:23)
[2023-02-05] MEDS: METHYLERGONOVINE MALEATE 0.2 MG/ML INJ IM (17:26)
[2023-02-05] MEDS: CARBOPROST TROMETHAMINE 250 MCG/ML INJ IM (17:32)
[2023-02-05] MEDS: LOPERAMIDE HCL 2 MG CAPSULE 4 MG PO (17:35)
[2023-02-05 18:07] LABS: Basophils Absolute Auto 0.03 K/uL (0.00-0.30); Basophils Percent Auto 0.4 % (0.0-3.0); Eosinophils Absolute Auto 0.03 K/uL (0.00-0.50); Eosinophils Percent Auto 0.4 % (0.0-7.0); Hematocrit 33.8 % (33.0-51.0); Hemoglobin* 10.8 gm/dL (12.0-16.0); Immature Granulocytes Pct Auto 1.2 %; Lymphocytes Percent Auto 13.4 % (20-44); Mean Corpuscular HGB Conc 32 gm/dL (32-36); Mean Corpuscular Hemoglobin 25 pg (26-34); Mean Corpuscular Volume 79 fL (80-100); Monocytes Percent Auto 5.7 % (0.0-11.0); Neutrophils Percent Auto 78.9 % (42.0-72.0); Platelet Count* 224 K/uL (140-440); RDW Coefficient of Variation % 14.6 % (11.5-15.5)
[2023-02-05 18:08] LABS: Slide Review Reflex No
[2023-02-05 18:10] LABS: INR 0.92 (0.91-1.10)
[2023-02-05 18:11] LABS: Fibrinogen* 405 mg/dL (200-450); Partial Thromboplastin Time* 24 Seconds (23-33)
--- NOTE | 2023-02-05 18:57 | W.PM.VAGD1_ITS ---
Procedure Procedure Done: [facility] Procedure Details: Bailee is a 32 year-old G 2 P 1001 now 2 admitted on 02/05/2023 at 7:00 a.m. at 39 Weeks, 4 Days gestation for an elective induction of labor. AROM occurred at 8:53 a.m. on 02/05/2023 with clear fluid. Labor Analgesia: Epidural, fentanyl 50 mcg IV x1 Pitocin: Yes Labor onset: 02/05/2023 at 2:00 p.m.. Complete: 02/05/2023 at 4:15 p.m.. Pushin02/05/2023 at 4:25 p.m.. heart tones during second stage were: Category 2 with moderate variability between contractions, sporadic early decelerations with pushing. Patient received 1 g of TXA IV during the 2nd stage. This was an attempt to prevent hemorrhage as the patient has 2 units of packed red blood cells by directed donation from her sister and her mother because she does not want to accept blood products from anyone who was immunized with the COVID vaccine. At 4:50 p.m. a viable female delivered in vertex direct OA presentation over first-degree perineal laceration via normal spontaneous vaginal delivery. The infant was placed on maternal abdomen. Cord was clamped and cut after a 60 second delay. Nose and mouth were bulb suctioned. Infant weight 7 lb 6 oz. 8 at 1 minute and 9 at 5 minutes. Shoulder dystocia: No. Nuchal cord: No Placenta delivered manually and complete at 5:23 p.m. with a three vessel cord. After the placenta was delivered there was extreme uterine atony in the lower uterine segment: The patient received 30 units Pitocin in 500 mL wide open, 800 mg Cytotec rectally, 1 dose Methergine 0.2 mg IM, 1 dose Hemabate 0.25 mg IM with for mg PO Imodium and a 2nd dose of IV TXA. The uterus was explored multiple times and large clots were removed. An attempt at placing a Bakri balloon was made but the fundus was yesi down with the medications and the Bakri does not stay in the lower uterine segment which was the atonic portion of the uterus. CBC, INR, APTT and fibrinogen were ordered stat. The 2 units of packed red blood cells the patient has directed to her for requested stat. Within 30 minutes after delivery of the placenta the uterine segment began to contract and bleeding subsided. The patient received 50 mcg fentanyl IV during the portion of the treatment that required bimanual uterine massage as the epidural she had was not adequate to prevent her from having pain. During the hemorrhage the patient's blood pressure decreased to 70s/40s. Pulse in the high 90s and the patient complained of feeling dizzy and lightheaded but never lost consciousness. A 2nd IV was started and she received 2 L of IV fluid and blood pressure rebounded to 110s/70s and the patient felt mu ch better. Will check a CBC in the morning. Patient also received 1 dose of Ancef 2 g IV due to manual extraction of the placenta plus multiple extraction of intrauterine blood clots. Laceration(s): First-degree perineal. Repaired using 4-0 Vicryl suture in a running manner. Blood loss: 1045 mL. Blood loss measurement type: Quantitative Sponge and needles counts are correct. Specimen: None Mother and infant were stable after delivery. Infant's name: Jeramie The patient is planning on breast feeding. Lab results from 02/05 at 5:40 p.m. all normal: Hemoglobin 10.8 Platelets 224 INR 0.92 Eighty PTT 24 Fibrinogen 405: Delivery monitor: external FHT and external uterine Route of delivery: Laceration description: Perineal - 1st Degree Delivery repair: Vicryl Estimated blood loss (mL): 1,045 Anesthesia type: Epidural Disposition: floor Complications: hemorrhage: See narrative of the delivery note. Dewey Gender: Female presentation: vertex Placental Delivery Description: Manual Removal Cord Description: 3 Vessels OB Vag Delivery Procedures Additional Procedures Laceration Repair: Yes
[2023-02-05] MEDS: CEFAZOLIN 2 GM in 0.9 % SODIUM CHLORIDE Mini-bag 100 ML IVPB (20:17)
[2023-02-05] MEDS: IBUPROFEN 600 MG TABLET PO (22:16)
[2023-02-06 04:49] VITALS: BP 96/60; PULSE 78; RESP 16; TEMP 36.9; O2SAT 95
[2023-02-06 04:54] LABS: Basophils Percent Auto 0.2 % (0.0-3.0); Eosinophils Percent Auto 0.2 % (0.0-7.0); Hematocrit 35.2 % (33.0-51.0); Hemoglobin* 11.6 gm/dL (12.0-16.0); Immature Granulocytes Pct Auto 0.3 %; Lymphocytes Percent Auto 12.5 % (20-44); Mean Corpuscular HGB Conc 33 gm/dL (32-36); Mean Corpuscular Hemoglobin 26 pg (26-34); Mean Corpuscular Volume 78 fL (80-100); Monocytes Percent Auto 6.3 % (0.0-11.0); Neutrophils Percent Auto 80.5 % (42.0-72.0); Platelet Count* 154 K/uL (140-440); RDW Coefficient of Variation % 13.7 % (11.5-15.5); White Blood Count* 13.26 K/uL (4.50-11.00)
[2023-02-06] MEDS: IBUPROFEN 600 MG TABLET PO ×2 (04:55→12:58)
[2023-02-06 04:58] LABS: Slide Review Reflex No
[2023-02-06 08:10] VITALS: BP 110/76; PULSE 86; RESP 16; TEMP 36.9; O2SAT 96
[2023-02-06] MEDS: ESCITALOPRAM 10 MG TABLET PO (09:09)
[2023-02-06] MEDS: ACETAMINOPHEN 500 MG TABLET 1000 MG PO ×2 (09:52→18:32)
--- NOTE | 2023-02-06 10:10 | PM.OBDSVD1 ---
DS: Providers Provider Time Seen by Provider: 09:00 Date Seen: 02/06/23 Date of admission: 02/05/23 06:41 Primary care physician: Not a Local Provider Admitting Clinician: Gabby Blood MD Attending Physician on discharge: Gabby Blood MD Date of Discharge: 02/06/23 DS: Diagnosis Discharge Diagnosis (1) First degree perineal laceration: Status: Acute (2) (normal spontaneous vaginal delivery): Status: Acute Problem details: Girl, Apgars 8/9, 7 lb 6 oz. 4:50PM. Jeramie. (3) hemorrhage: Status: Acute Problem details: Lower uterine segment atony: Patient received 2 units packed red blood cells that were direct donation from her mother and sister. CBC and coagulation labs wnl. Discharge hgb 11.6 (4) S/P PICC central line placement: Status: Acute Problem details: Removed without complications (5) Generalized anxiety disorder: Status: Chronic Problem details: & panic attacks. Lexapro 10 mg daily started on day 1. Exam Narrative: Exam Narrative: Physical exam: General: No acute distress Psych: Alert and oriented x3, full affect HEENT: Normocephalic, atraumatic, no conjunctival pallor bilaterally Heart: Regular rate and rhythm, no murmur rub or gallop Lungs: Clear to auscultation bilaterally Abdomen: Normoactive bowel sounds, soft, no tenderness, rebound, or guarding. Fundus firm 2 cm below umbilicus Skin: No lesions or rashes Breasts: no nodules or masses, no nipple discharge, no axillary adenopathy Lower extremities: No edema or erythema Pelvic exam: Scant lochia Const: Vital Signs, click to edit/add: Vital Signs - 24 hr 02/05/23 11:12 02/05/23 11:13 02/05/23 11:17 Temperature Pulse Rate 89 Pulse Rate [Pulse Oximeter] Respiratory Rate Blood Pressure 119/76 Blood Pressure [Le ft Arm] Pulse Oximetry 97 96 Oxygen Delivery Nd thod 02/05/23 12:18 02/05/23 12:18 02/05/23 13:32 Temperature 98.1 F 98.1 F Pulse Rate 93 Pulse Rate [Pulse Oximeter] Respiratory Rate Blood Pressure 117/74 Blood Pressure [Le ft Arm] Pulse Oximetry Oxygen Delivery Nd thod 02/05/23 13:33 02/05/23 13:55 02/05/23 13:56 Temperature 98.1 F Pulse Rate 81 96 Pulse Rate [Pulse Oximeter] Respiratory Rate Blood Pressure 122/78 133/82 Blood Pressure [Le ft Arm] Pulse Oximetry 100 Oxygen Delivery Nd thod 02/05/23 14:01 02/05/23 14:12 02/05/23 14:14 Temperature Pulse Rate 98 100 Pulse Rate [Pulse Oximeter] Respiratory Rate Blood Pressure 120/77 117/70 Blood Pressure [Le ft Arm] Pulse [facility]ximetry [facility] 14[facility]16 02/05/23 14:18 02/05/23 14:20 Temperature Pulse Rate 98 100 75 Pulse Rate [Pulse Oximeter] Respiratory Rate Blood Pressure 106/60 98/54 L 98/57 L Blood Pressure [Le ft Arm] Pulse Oximetry [facility] 02/[facility]/23 14:24 02/05/23 14:25 02/05/23 14:28 Temperature Pulse Rate 67 75 88 Pulse Rate [Pulse Oximeter] Respiratory Rate Blood Pressure 134/82 127/76 113/64 Blood Pressure [Le ft Arm] Pulse Oximetry [facility] 02/[facility]/23 14:31 02/05/23 14:34 02/05/23 14:37 Temperature Pulse Rate 88 83 76 Pulse Rate [Pulse Oximeter] Respiratory Rate Blood Pressure 102/58 L 100/55 L 121/74 Blood Pressure [Le ft Arm] Pulse Oximetry [facility] 02/05/23 14:40 02/05/23 14:43 02/05/23 14:46 Temperature Pulse Rate 88 83 83 Pulse Rate [Pulse Oximeter] Respiratory Rate Blood Pressure 110/68 101/56 L 103/61 Blood Pressure [Le ft Arm] Pulse Oximetry Oxygen Delivery Nd thod 02/05/23 14:48 02/05/23 14:52 02/05/23 14:55 Temperature Pulse Rate 75 86 83 Pulse Rate [Pulse Oximeter] Respiratory Rate Blood Pressure 108/68 107/58 L 112/66 Blood Pressure [Le ft Arm] Pulse Oximetry Oxygen Delivery Nd thod 02/05/23 15:01 02/05/23 15:07 02/05/23 15:11 Temperature Pulse Rate 102 H 92 86 Pulse Rate [Pulse Oximeter] Respiratory Rate Blood Pressure 96/61 109/63 103/60 Blood Pressure [Le ft Arm] Pulse Oximetry Oxygen Delivery Nd thod 02/05/23 15:16 02/05/23 15:22 02/05/23 15:27 Temperature Pulse Rate 100 96 89 Pulse Rate [Pulse Oximeter] Respiratory Rate Blood Pressure 99/59 L 102/64 121/83 Blood Pressure [Le ft Arm] Pulse Oximetry Oxygen Delivery Nd thod 02/05/23 15:33 02/05/23 15:41 02/05/23 15:46 Temperature Pulse Rate 96 103 H 98 Pulse Rate [Pulse Oximeter] Respiratory Rate Blood Pressure 113/63 127/73 114/69 Blood Pressure [Le ft Arm] Pulse Oximetry Oxygen Delivery Nd thod 02/05/23 15:50 02/05/23 15:53 02/05/23 16:11 Temperature Pulse Rate 105 H 113 H Pulse Rate [Pulse Oximeter] Respiratory Rate Blood Pressure 111/73 129/88 Blood Pressure [Le ft Arm] Pulse Oximetry 100 Oxygen Delivery Nd thod 02/05/23 16:44 02/05/23 16:55 02/05/23 17:10 Temperature 97.9 F Pulse Rate 103 H 98 Pulse Rate [Pulse Oximeter] Respiratory Rate Blood Pressure 116/58 L 118/58 L Blood Pressure [Le ft Arm] Pulse Oximetry Oxygen Delivery Nd thod 02/05/23 17:25 02/05/23 17:30 02/05/23 17:33 Temperature Pulse Rate 101 H 60 74 Pulse Rate [Pulse Oximeter] Respiratory Rate Blood Pressure 137/60 88/52 L 76/45 L Blood Pressure [Le ft Arm] Pulse Oximetry Oxygen Delivery Nd thod 02/05/23 17:36 02/05/23 17:41 02/05/23 17:46 Temperature Pulse Rate 92 91 94 Pulse Rate [Pulse Oximeter] Respiratory Rate Blood Pressure 77/47 L 98/61 107/69 Blood Pressure [Le ft Arm] Pulse Oximetry Oxygen Delivery Nd thod 02/05/23 17:51 02/05/23 17:56 02/05/23 18:01 Temperature Pulse Rate 96 99 98 Pulse Rate [Pulse Oximeter] Respiratory Rate Blood Pressure 110/70 110/71 115/75 Blood Pressure [Le ft Arm] Pulse Oximetry Oxygen Delivery Nd thod 02/05/23 18:06 02/05/23 18:06 02/05/23 18:06 Temperature 97.2 F L Pulse Rate 97 97 96 Pulse Rate [Pulse Oximeter] Respiratory Rate 16 16 Blood Pressure 115/77 115/77 118/69 Blood Pressure [Le ft Arm] Pulse Oximetry 98 Oxygen Delivery Me thod 02/05/23 18:10 02/05/23 18:11 02/05/23 18:15 Temperature Pulse Rate 98 Pulse Rate [Pulse Oximeter] Respiratory Rate Blood Pressure 118/69 Blood Pressure [Le ft Arm] Pulse Oximetry 98 98 Oxygen Delivery Me thod 02/05/23 18:16 02/05/23 18:20 02/05/23 18:21 Temperature Pulse Rate 100 96 Pulse Rate [Pulse Oximeter] Respiratory Rate Blood Pressure 105/74 103/73 Blood Pressure [Le ft Arm] Pulse Oximetry 98 Oxygen Delivery Me thod 02/05/23 18:25 02/05/23 18:26 02/05/23 18:29 Temperature Pulse Rate 90 93 Pulse Rate [Pulse Oximeter] Respiratory Rate Blood Pressure 110/74 113/75 Blood Pressure [Le ft Arm] Pulse Oximetry 98 Oxygen Delivery Me thod 02/05/23 18:29 02/05/23 18:30 02/05/23 18:35 Temperature 98.5 F Pulse Rate 93 Pulse Rate [Pulse Oximeter] Respiratory Rate 16 Blood Pressure 113/75 Blood Pressure [Le ft Arm] Pulse Oximetry 98 99 99 Oxygen Delivery Me thod 02/05/23 18:40 02/05/23 18:43 02/05/23 18:44 Temperature Pulse Rate 89 88 Pulse Rate [Pulse Oximeter] Respiratory Rate 16 Blood Pressure 112/79 112/79 Blood Pressure [Le ft Arm] Pulse Oximetry 99 98 Oxygen Delivery Me thod 02/05/23 18:45 02/05/23 18:50 02/05/23 18:55 Temperature Pulse Rate Pulse Rate [Pulse Oximeter] Respiratory Rate Blood Pressure Blood Pressure [Le ft Arm] Pulse Oximetry 98 98 98 Oxygen Delivery Me thod 02/05/23 18:58 02/05/23 18:59 02/05/23 19:00 Temperature Pulse Rate 85 85 Pulse Rate [Pulse Oximeter] Respiratory Rate 16 Blood Pressure 111/74 111/74 Blood Pressure [Le ft Arm] Pulse Oximetry 98 Oxygen Delivery Me thod 02/05/23 19:05 02/05/23 19:10 02/05/23 19:10 Temperature Pulse Rate Pulse Rate [Pulse Oximeter] Respiratory Rate 16 Blood Pressure Blood Pressure [Le ft Arm] Pulse Oximetry 98 98 98 Oxygen Delivery Me thod 02/05/23 19:13 02/05/23 19:14 02/05/23 19:15 Temperature Pulse Rate 88 88 Pulse Rate [Pulse Oximeter] Respiratory Rate 16 Blood Pressure 110/77 110/77 Blood Pressure [Le ft Arm] Pulse Oximetry 99 99 [facility] 02[facility] 19:20 02/05/23 19:25 02/05/23 19:25 Temperature Pulse Rate Pulse Rate [Pulse Oximeter] Respiratory Rate 16 Blood Pressure Blood Pressure [Le ft Arm] Pulse Oximetry 99 99 98 [facility] 02/05/23 19:29 02/05/23 19:30 02/05/23 19:35 Temperature Pulse Rate 93 Pulse Rate [Pulse Oximeter] Respiratory Rate Blood Pressure 112/85 Blood Pressure [Le ft Arm] Pulse Oximetry 100 99 [facility] 02/05/23 19:40 02/05/23 19:45 02/05/23 19:50 Temperature Pulse Rate Pulse Rate [Pulse Oximeter] Respiratory Rate Blood Pressure Blood Pressure [Le ft Arm] Pulse Oximetry 99 100 100 [facility] 02/05/23 20:17 02/05/23 20:30 02/05/23 20:30 Temperature 98.3 F Pulse Rate 92 95 Pulse Rate [Pulse Oximeter] 81 Respiratory Rate 16 Blood Pressure 111/73 124/77 Blood Pressure [Le ft Arm] 124/77 Pulse Oximetry 98 [facility] 02/05/23 20:44 02/05/23 21:23 02/05/23 21:24 Temperature 98.1 F Pulse Rate 96 82 82 Pulse Rate [Pulse Oximeter] Respiratory Rate 17 Blood Pressure 124/78 117/75 117/75 Blood Pressure [Le ft Arm] Pulse Oximetry 97 [facility] 02/05/23 21:38 02/05/23 21:38 02/05/23 21:41 Temperature 98.3 F 98.1 F Pulse Rate 93 93 53 L Pulse Rate [Pulse Oximeter] Respiratory Rate 16 16 Blood Pressure 113/75 113/75 121/76 Blood Pressure [Le ft Arm] Pulse Oximetry 98 98 Oxygen Delivery Me thod 02/05/23 22:00 02/05/23 22:26 02/05/23 23:45 Temperature 98.0 F 98.0 F Pulse Rate 81 81 Pulse Rate [Pulse Oximeter] Respiratory Rate 16 16 Blood Pressure 118/77 125/82 Blood Pressure [Le ft Arm] Pulse Oximetry 98 98 98 Oxygen Delivery Me thod Room Air 02/05/23 23:45 02/06/23 04:49 02/06/23 08:10 Temperature 98.0 F 98.4 F 98.4 F Pulse Rate Pulse Rate [Pulse Oximeter] 81 78 86 Respiratory Rate 16 16 16 Blood Pressure Blood Pressure [Le ft Arm] 125/82 96/60 110/76 Pulse Oximetry 98 95 96 Oxygen Delivery Me thod Room Air Room Air Room Air OB - DS: Summary Hospital Course Hospital Course: The patient is a 32 year old G 2 P 2002 at 39.4 weeks gestation that was admitted to the Center on 02/05/23 for elective induction of labor. She had a vaginal delivery complicated by hemorrhage requiring 2u of pRBC (donated from her sister and mother). She delivered a viable female infant. She is breast feeding. the patient has done well. Overnight patient had no complaints. Her pain is well controlled on oral pain medications. She is tolerating a regular diet. She has passed flatus. She is ambulating without difficulty. Lochia is scant. She is urinating without de leon. Patient denies chest pain, SOB, n/v, headache, RUQ pain, vision changes, dizziness. Patient would like to go home at 24 hours PP if baby also gets discharged. Time spent discussing smoking cessation with patient: 3 to 10 minutes [place] Infant Gender: Female Time Spent with Patient Time attestation: Total time spent providing and/or coordinating discharge services: Discharge Plan Discharge Disposition: Home, Self-Care Date of Admission: 02/05/23 06:41 Attending Provider on Discharge: Vicki Mandel MD Primary Care Provider: Provider,Not a Local Condition: Stable Anticipated Discharge Date/Time: 02/07/23 12:00 Discharge Medications: New ibuprofen 600 mg Tablet 600 mg PO Q6H PRNQty: 30 0RF docusate sodium 100 mg capsule 100 mg PO BID Qty: 100 0RF escitalopram oxalate 10 mg Tablet 10 mg PO DAILY Qty: 90 0RF Continued [id number] mg combo pack 1 pkg PO DAILY Patient Comments: Was through IV Discontinued valacyclovir [Valtrex] 1 gram tablet 1,000 mg PO BID Discharge Orders: Discharge Order (Routine); Ordered 02/06/23 Ordered By: Vicki Mandel Patient Education: Bleeding (ED), Vaginal Delivery (GEN) Additional Instructions: Discharge instructions were reviewed with the patient including signs and symptoms of infection and home going medications. ACTIVITY RESTRICTIONS: Off Work or School for a minimum of 6 weeks. Nothing vaginally for 6 weeks. Symptoms to report to doctor: -Bleeding that saturates more than one pad per hour ?-Passing clots larger than the size of a golf ball ?-Pain not relieved by prescribed medication ?-Fever above 100.4 degrees Fahrenheit ?-A foul vaginal odor ?-Difficulty in emotions, mood and functions ?-Thoughts of hurting yourself and/or ?-Painful, reddened area in your breast ?-Any drainage, redness or tenderness in your IV/epidural site ?-Severe headache that doesn't improve after taking medications ?-Changes in vision, including temporary loss of vision, blurred vision, and/or light sensitivity ?-Upper abdominal pain (usually under ribs on the right side) ?-Decrease in urination or painful, frequent urinating ?-Chest pain ?-Shortness of breath ?-Tenderness or pain with redness and/swelling in the calf(s) of your leg Follow Up Appointments in the [facility]: 1. 2 week visit: see how Lexapro is working for mood, discuss contraceptive options. 2. 6 week exam = well woman exam. consultation services are available to all mothers and babies for the first year after delivery.? To make an appointment, please call [phone]. Discharge Diet: Regular Follow Up Appointments: [facility] [Provider Group] Gabby Blood MD [Staff Physician] - Provider,Not a Local [Primary Care Provider] - Forms: [employer] Renew[employer] Info Instructions
[2023-02-06] MEDS: DOCUSATE SODIUM 100 MG CAPSULE PO (13:00)
[2023-02-06 13:30] VITALS: BP 105/65; PULSE 87; RESP 16; TEMP 37.2
== END 2023-02-06 20:20 | disposition home or self-care (01) | DRG 806 ==
PROVIDERS: Admitting Provider Obstetrics & Gynecology; Visit Provider Obstetrics & Gynecology
DX: O72.1 Other immediate postpartum hemorrhage (principal); O98.32 Other infections with a predominantly sexual mode of transmission complicating childbirth; Z37.0 Single live birth; A60.00 Herpesviral infection of urogenital system, unspecified; I95.9 Hypotension, unspecified; R42 Dizziness and giddiness; O70.0 First degree perineal laceration during delivery; O99.344 Other mental disorders complicating childbirth; F41.1 Generalized anxiety disorder; Z3A.39 39 weeks gestation of pregnancy
CPT/HCPCS: 01967; 36415; 36430; 85025; 85384; 85610; 85730; 86850; 86900; 86901; 86922; A9270; J0690; J2210; J2371; J2795; J7120; S0020

== ENCOUNTER 2023-02-15 20:40 | Inpatient (IN) | payer OTHER, SELFPAY ==
[2023-02-15 20:49] VITALS: BP 115/77; PULSE 72; RESP 16; TEMP 36.3; O2SAT 99; BMI 27.4
--- NOTE | 2023-02-15 21:03 | ED_ITS ---
HPI - Abdominal Pain General Time Seen by Provider: 21:03 Date Seen: 02/15/23 Chief Complaint: Abdominal Pain Stated Complaint: R side pain Time Seen by Provider: 02/15/23 20:50 Source: patient, RN notes reviewed and other (UC did call with report on patient) Mode of arrival: ambulatory Limitations: no limitations History of Present Illness HPI narrative: Patient is a 33-year-old female coming in with right-sided pain that started 2 days after delivery. She had an on 02/05/2023 here at [facility]. This was complicated by hemorrhage. She received multiple medications, did get 2 units packed red blood cells. Estimated blood loss was referred to be greater than 1000 mL. Since February 07, she has started having right sided lower abdominal pain. She initially went to urgent care but then was directed to the ER. She was told to try ibuprofen when it started but it did not really help. She has not continued with the ibuprofen. She reportedly did not have that much bleeding or lochia after the initial hemorrhage. of this last week she started having increased use of pads, about 3 medium a day. No significant cramping but started to note odorous/fall lochia. She just states she can not get comfortable. Bending hurts the most. She denies any fevers. No nausea or vomiting, no urinary symptoms, denies any constipation or diarrhea. She is not aware of any kidney stones in the family history. Her dad did have his appendix out. She understands that this is likely not her appendix. She has not been recently taking ibuprofen as it really was not changing it. She declines any need for pain medication at this time. elicited complaint: abdominal pain Related Data Patient : No Previous Rx's Medication Instructions Recorded docusate sodium 100 mg capsule 100 mg PO BID #100 caps 02/05/23 escitalopram oxalate 10 mg tablet 10 mg PO DAILY #90 tabs 02/05/23 ibuprofen 600 mg tablet 600 mg PO Q6H PRN #30 tabs 02/05/23 Allergies Allergy/AdvReac Type Severity Reaction Status Date / Time chlorhexidine Allergy Mild rash, Verified 02/01/23 14:52 swelling, redness Review of Systems Status of ROS Reports: 6 or more systems reviewed and unremarkable except as noted in History and below [facility] Medical History Vestibulitis of vagina ?N76.0 - Acute vaginitis (ICD-10) Genital HSV ?A60.00 - Herpesviral infection of urogenital system, unspecified (ICD-10) Hyperemesis gravidarum with dehydration ?O21.1 - Hyperemesis gravidarum with metabolic disturbance (ICD-10) History of Clostridioides difficile colitis ?Z86.19 - Personal history of other infectious and parasitic diseases (ICD- 10) History of vaginal delivery History of hemorrhage ?Z87.59 - Personal history of other complications of , childbirth and the puerperium (ICD-10) Digestive problems ?K92.9 - Disease of digestive system, unspecified (ICD-10) History of cholestasis during ?Z87.59 - Personal history of other complications of , childbirth and the puerperium (ICD-10) ?Z87.19 - Personal history of other diseases of the digestive system (ICD-10) History of varicella ?Z86.19 - Personal history of other infectious and parasitic diseases (ICD- 10) History of abnormal cervical Papanicolaou smear ?Z87.42 - Personal history of other diseases of the female genital tract (ICD-10) Generalized anxiety disorder ?F41.1 - Generalized anxiety disorder (ICD-10) depression ?F53.0 - depression (ICD-10) Exercise-induced asthma ?J45.990 - Exercise induced bronchospasm (ICD-10) Surgical History History of tonsillectomy ?Z90.89 - Acquired absence of other organs (ICD-10) History of third molar tooth extraction ?K08.409 - Partial loss of teeth, unspecified cause, unspecified class (ICD- 10) History of colonoscopy ?Z98.890 - Other specified postprocedural states (ICD-10) Family History Aunt Ovarian cancer Paternal Grandfather High cholesterol Aunt Breast cancer 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 . 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 living situation?: I presently have a place to live Problems where you live: no known problems In the past 12 months, utilities in danger of being shut off: no In the past 12 mos, have been you worried that your food would run out before you had money to buy more?: never true In the past 12 mos, the food you bought just didn't last and you didn't have money to buy more?: never true Smoking Status: Never smoker Non-prescribed substance use: denies use How often does anyone, including family, friends and others, physically hurt you : never How often does anyone, including family, friends and others, insult or talk down to you: never How often does anyone, including family, friends and others, threaten you with harm: never How often does anyone, including family, friends and others, scream or curse at you: never Little interest or pleasure in doing things: several days Feeling down, depressed, or hopeless: not at all Exam Const: Vital Signs, click to edit/add: Vital Signs - 24 hr 02/15/23 20:49 Temperature 97.3 F L Pulse Rate [Pulse Oximeter] 72 Respiratory Rate 16 Blood Pressure [Ri ght Upper Arm] 115/77 Pulse Oximetry 99 Oxygen Delivery Me thod Room Air Documenting provider has reviewed patient's vital signs: yes Common normals: no apparent distress, average body habitus, oriented x3, no limitations, healthy appearing, alert and well nourished General appearance: cooperative, comfortable, well kempt and well developed HENMT: Common normals: normocephalic, head/scalp atraumatic, hearing grossly normal bilaterally and external nose normal Head and scalp: normocephalic and atraumatic Face and sinus: normal facial exam Nose: external nose normal Eye: Common normals: PERRL, EOMs intact bilaterally, conjunctivae normal and no scleral icterus Conjunctiva: conjunctiva(e) normal Pupil: PERRL Neck & C-Spine: Common normals: full ROM, no lymphadenopathy, supple and no meningeal signs Resp: Common normals: normal respiratory effort, no retractions, no use of accessory muscles and clear to auscultation bilaterally Effort & inspection: able to speak in complete sentences Auscultation: clear to auscultation bilaterally Cardio: Common normals: regular rate, regular rhythm, S1 normal heart sound, S2 normal heart sound, no gallops, no clicks and no murmurs Rate: regular rate Rhythm: regular rhythm Heart sounds: S1 normal and S2 normal GI: Other: Uterus is below umbilicus, she is tender over her uterus even midline in the suprapubic area and request that he stop palpating. There really is no rebound or guarding per se but has definite uterine tenderness. Neuro: Common normals: oriented x3 Sensorium/orientation: alert Meningeal signs: no meningeal signs Psych: Appearance: well kempt Course Course Hospital Course: Will initiate workup with labs and a pelvic ultrasound. Certainly retained products of conception as well as infection or possible etiologies here. Is doubtful that this is appendicitis but may need to consider advanced imaging with CT if we are not finding anything with the pelvic ultrasound. She declines anything for pain at this time. If we really do need to proceed with urinalysis, may need to do in an out collection to obtain a accurate urinalysis. Reevaluation(s) Time of Reevaluation #1: 22:39 Reevaluation #1: Patient being admitted for uterine infections/endometritis and retained products of conception. Have reviewed blood transfusion if necessary with patient. She has concerns about blood from COVID vaccinated person's being in the supply. I tried to reassure her, certainly would not advise her to not take a transfusion in an emergency situation. It sounds as she will consider this. Consultations Consultation #1: Dr. Mandel actually called here before I called her, US reading still pending. She will be down to see patient, she sees retained products of conception. Reviewed with her that I do not know when she last ate. Time: 21:54 Vital Signs Vital signs: Initial Vital Signs Temperature 97.3 F L 02/15/23 20:49 Temperature Source Temporal Artery Scan 02/15/23 20:49 Pulse Rate 72 02/15/23 20:49 Respiratory Rate 16 02/15/23 20:49 Blood Pressure 115/77 02/15/23 20:49 Blood Pressure Mean 89 02/15/23 20:49 Blood Pressure Position Supine 02/15/23 20:49 Pulse Oximetry 99 02/15/23 20:49 Oxygen Delivery Method Room Air 02/15/23 20:49 Vital Signs Temperature 97.3 F L 02/15/23 20:49 Pulse Rate 72 02/15/23 20:49 Respiratory Rate 16 02/15/23 20:49 Blood Pressure 115/77 02/15/23 20:49 Pulse Oximetry 99 02/15/23 20:49 Oxygen Delivery Method Room Air 02/15/23 20:49 Temperature 97.3 F L 02/15/23 20:49 Pulse Rate 72 02/15/23 20:49 Respiratory Rate 16 02/15/23 20:49 Blood Pressure 115/77 02/15/23 20:49 Pulse Oximetry 99 02/15/23 20:49 Oxygen Delivery Method Room Air 02/15/23 20:49 MDM - Abdominal Pain Lab Data Labs: Lab Results 02/15/23 Range/Units 21:30 WBC 6.33 (4.50-11.00) K/uL RBC 5.20 (4.00-5.20) m/uL Hgb 13.1 (12.0-16.0) gm/dL Hct 42.0 (33.0-51.0) % MCV 81 (80-100) fL MCH 25 L (26-34) pg MCHC 31 L (32-36) gm/dL RDW Coeff of Efraín 14.5 (11.5-15.5) % Plt Count 277 (140-440) K/uL Neut % (Auto) 56.5 (42.0-72.0) % Lymph % (Auto) 31.6 (20-44) % [place] % (Auto) 8.1 (0.0-11.0) % Eos % (Auto) 2.8 (0.0-7.0) % Baso % (Auto) 0.8 (0.0-3.0) % Neut # (Auto) 3.58 (1.7-7.0) K/uL Lymph # (Auto) 2.00 (0.90-2.90) K/uL [place] # (Auto) 0.50 (0.00-0.90) K/UL Eos # (Auto) 0.18 (0.00-0.50) K/uL Baso # (Auto) 0.05 (0.00-0.30) K/uL Abs Immat Gran (auto) 0.01 (0.00-0.30) K/uL Imm/Tot Granulo (auto) 0.2 % Sodium 138 (135-149) mmol/L Potassium 3.9 (3.6-5.1) mmol/L Chloride 107 (96-114) mmol/L Carbon Dioxide 25 (20-32) mmol/L BUN 19 (5-24) mg/dL Creatinine 0.8 (0.5-1.5) mg/dL Estimated Creat Clear 94.51 Estimated GFR 100 ml/min Glucose 98 (60-115) mg/dL Lactate 1.2 (0.5-1.9) mmol/L Calcium 9.2 (8.4-10.6) mg/dL Total Bilirubin 0.4 (0.1-1.5) mg/dL AST 26 (12-35) U/L ALT 34 (4-35) U/L Alkaline Phosphatase 96 (40-150) U/L C-Reactive Protein 1.1 H (0.5-1.0) mg/dL Total Protein 7.3 (6.0-8.3) g/dL Albumin 4.2 (3.3-5.0) g/dL Discharge Plan Discharge Clinical Impression: Acute endomyometritis, Retained products of conception Patient Disposition: Admitted As Observation Prescriptions: No Action ibuprofen 600 mg Tablet 600 mg PO Q6H PRNQty: 30 0RF docusate sodium 100 mg capsule 100 mg PO BID Qty: 100 0RF escitalopram oxalate 10 mg Tablet 10 mg PO DAILY Qty: 90 0RF Follow Up/Referrals: Provider,Not a Local [Primary Care Provider] -
--- NOTE | 2023-02-15 21:12 | CRLHL7_ITS ---
For Patients: As a result of the Century Cures Act, medical imaging exams and procedure reports are released immediately into your electronic medical record. You may view this report before your referring provider. If you have questions, please contact your health care provider. INDICATION: Pelvic pain. File discharge. Ten days . COMPARISON: None available FINDINGS: Transabdominal ultrasound examination of the female pelvis was performed. The moderately enlarged uterus is anteverted with no evidence of mass. It measures 10.7 x 6.6 x 9.0 cm. There is increased vascularity throughout the myometrium, more prominent along the inferior wall. The appearance is consistent with recent status. The endometrial lining is heterogeneous in echogenicity and increased in thickness at 27 mm. There is increased vascularity of the endometrial lining particularly in the fundus, worrisome for retained products of conception. The right ovary is normal in appearance, measuring 3.2 x 1.5 x 2.2 centimeters. There is normal color and pulsed Doppler flow. The left ovary cannot be identified. There is no sign of free fluid in the pelvis. IMPRESSION: Thickened, heterogeneous endometrial lining with increased vascularity in the uterine fundus, worrisome for retained products of conception. Moderately enlarged uterus with increased myometrial vascularity consistent with recent status. Dictated by Eliud Morrow MD @ 02/15/2023 10:35:01 PM (Electronically Signed)
[2023-02-15 21:35] LABS: Lactate* 1.2 mmol/L (0.5-1.9)
[2023-02-15 21:37] LABS: Basophils Absolute Auto 0.05 K/uL (0.00-0.30); Basophils Percent Auto 0.8 % (0.0-3.0); Eosinophils Absolute Auto 0.18 K/uL (0.00-0.50); Eosinophils Percent Auto 2.8 % (0.0-7.0); Hemoglobin* 13.1 gm/dL (12.0-16.0); Immature Granulocytes Abs Auto 0.01 K/uL (0.00-0.30); Immature Granulocytes Pct Auto 0.2 %; Lymphocytes Percent Auto 31.6 % (20-44); Mean Corpuscular HGB Conc 31 gm/dL (32-36); Mean Corpuscular Hemoglobin 25 pg (26-34); Mean Corpuscular Volume 81 fL (80-100); Monocytes Percent Auto 8.1 % (0.0-11.0); Neutrophils Absolute Auto 3.58 K/uL (1.7-7.0); Neutrophils Percent Auto 56.5 % (42.0-72.0); Platelet Count* 277 K/uL (140-440); RDW Coefficient of Variation % 14.5 % (11.5-15.5); White Blood Count* 6.33 K/uL (4.50-11.00)
[2023-02-15 21:39] LABS: Slide Review Reflex No
[2023-02-15 21:53] LABS: Albumin* 4.2 g/dL (3.3-5.0); Chloride* 107 mmol/L (96-114); Sodium* 138 mmol/L (135-149)
[2023-02-15 21:54] LABS: Potassium* 3.9 mmol/L (3.6-5.1)
[2023-02-15 21:56] LABS: Alkaline Phosphatase* 96 U/L (40-150); Aspartate Amino Transferase* 26 U/L (12-35); Bilirubin Total* 0.4 mg/dL (0.1-1.5); Blood Urea Nitrogen* 19 mg/dL (5-24); Carbon Dioxide* 25 mmol/L (20-32); Creatinine* 0.8 mg/dL (0.5-1.5); Est. Creatinine Clearance* 94.51; Estimated Glomerular Filt Rate 100 ml/min; Total Protein* 7.3 g/dL (6.0-8.3)
[2023-02-15 21:57] LABS: Alanine Aminotransferase* 34 U/L (4-35); Calcium* 9.2 mg/dL (8.4-10.6); Glucose* 98 mg/dL (60-115)
[2023-02-15 21:59] LABS: C Reactive Protein* 1.1 mg/dL (0.5-1.0)
--- NOTE | 2023-02-15 22:22 | P.GYNCN_ITS ---
MACHINE TOOL TECHNOLOGY INSTRUCTOR - CN: HPI Data of Consult Time Seen by Provider: 22:24 Date Seen: 02/15/23 Consult date: 02/15/23 Primary Care Provider: Not a Local Provider Consult Narrative Reason for consult: abdominal pain Narrative: Bailee Perea is a 33 year old female who is day 10 from a spontaneous vaginal delivery complicated by hemorrhage. She required multiple uterotonics and 2 units of packed red blood cells. Final QBL was 1045 mL. She reported that on day 3 she started noticing some lower abdominal cramping that was different than what she had been having. This never got better and recently within the last couple days, got acutely worse. She reports that she is unable to bend over due to the pain in her lower abdomen. She denied any significant bleeding after the initial hemorrhage. She had very scant amount of lochia for the 1st week. She had more more bleeding in the last couple of days but nothing that was out of the ordinary from her last delivery. The thing that really concerned her, in addition to her abdominal pain, and brought her into the emergency room was the foul-smelling vaginal discharge that has started a couple of days ago and persisted. Patient denies fever, chills, chest pain, SOB, n/v, headache, vision changes, dizziness, hematuria or dysuria. Void and having BM per usual. cc:: CC: Review of Systems Status of ROS: Reports: 10 or more systems reviewed and unremarkable except as noted in History and below [facility] Medical History Vestibulitis of vagina ?N76.0 - Acute vaginitis (ICD-10) Genital HSV ?A60.00 - Herpesviral infection of urogenital system, unspecified (ICD-10) Hyperemesis gravidarum with dehydration ?O21.1 - Hyperemesis gravidarum with metabolic disturbance (ICD-10) History of Clostridioides difficile colitis ?Z86.19 - Personal history of other infectious and parasitic diseases (ICD- 10) History of vaginal delivery History of hemorrhage ?Z87.59 - Personal history of other complications of , childbirth and the puerperium (ICD-10) Digestive problems ?K92.9 - Disease of digestive system, unspecified (ICD-10) History of cholestasis during ?Z87.59 - Personal history of other complications of , childbirth and the puerperium (ICD-10) ?Z87.19 - Personal history of other diseases of the digestive system (ICD-10) History of varicella ?Z86.19 - Personal history of other infectious and parasitic diseases (ICD- 10) History of abnormal cervical Papanicolaou smear ?Z87.42 - Personal history of other diseases of the female genital tract (ICD-10) Generalized anxiety disorder ?F41.1 - Generalized anxiety disorder (ICD-10) depression ?F53.0 - depression (ICD-10) Exercise-induced asthma ?J45.990 - Exercise induced bronchospasm (ICD-10) Surgical History History of tonsillectomy ?Z90.89 - Acquired absence of other organs (ICD-10) History of third molar tooth extraction ?K08.409 - Partial loss of teeth, unspecified cause, unspecified class (ICD- 10) History of colonoscopy ?Z98.890 - Other specified postprocedural states (ICD-10) Family History Aunt Ovarian cancer Paternal Grandfather High cholesterol Aunt Breast cancer 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 . 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 living situation?: I presently have a place to live Problems where you live: no known problems In the past 12 months, utilities in danger of being shut off: no In the past 12 mos, have been you worried that your food would run out before you had money to buy more?: never true In the past 12 mos, the food you bought just didn't last and you didn't have money to buy more?: never true Smoking Status: Never smoker Non-prescribed substance use: denies use How often does anyone, including family, friends and others, physically hurt you : never How often does anyone, including family, friends and others, insult or talk down to you: never How often does anyone, including family, friends and others, threaten you with harm: never How often does anyone, including family, friends and others, scream or curse at you: never Little interest or pleasure in doing things: several days Feeling down, depressed, or hopeless: not at all Meds Home Medications and Allergies Allergies Allergy/AdvReac Type Severity Reaction Status Date / Time chlorhexidine Allergy Mild rash, Verified 02/01/23 14:52 swelling, redness MACHINE TOOL TECHNOLOGY INSTRUCTOR - Exam Physical Exam: Vital signs: Temp Pulse Resp BP Pulse Ox O2 Del Method 97.3 F L 72 16 115/77 99 Room Air 02/15/23 20:49 02/15/23 20:49 02/15/23 20:49 02/15/23 20:49 02/15/23 20:49 02/15/23 20:49 Narrative: Physical exam: General: No acute distress Psych: Alert and oriented x3, full affect HEENT: Normocephalic, atraumatic Lungs: Unlabored breathing Abdomen: Soft upper abdomen. Severe fundal tenderness. Guarding in the lower abdomen. No rebound. Lower extremities: No edema or erythema Pelvic exam: Yellow foul smelling discharge noted on pad. No blood noted. MACHINE TOOL TECHNOLOGY INSTRUCTOR - Results Labs Labs: Short CBC 02/15/23 Range/Units 21:30 WBC 6.33 (4.50-11.00) K/uL Hgb 13.1 (12.0-16.0) gm/dL Hct 42.0 (33.0-51.0) % Plt Count 277 (140-440) K/uL BMP 02/15/23 21:30 Sodium 138 Potassium 3.9 Chloride 107 Carbon Dioxide 25 BUN 19 Creatinine 0.8 Glucose 98 Calcium 9.2 Liver Function 02/15/23 Range/Units 21:30 Total Bilirubin 0.4 (0.1-1.5) mg/dL AST 26 (12-35) U/L ALT 34 (4-35) U/L Alkaline Phosphatase 96 (40-150) U/L Albumin 4.2 (3.3-5.0) g/dL Assessment and Plan Assessment and plan (1) Retained products of conception: Status: Acute (2) Acute endomyometritis: Status: Acute Plan - Patient with severe abdominal pain and foul smelling lochia - TVUS on 02/15: Thickened, heterogenous endometrial lining with increased vascularity in the uterine fundus, worrisome for retained products of conception - Hgb/plt: 13.1/277 - WBC 6.33 - VSS, afebrile - Admit for IV antibiotics and suction dilation curettage in the AM - Gentamicin 5 mg/kg Q24H and clindamycin 900 mg Q8H ordered - Last ate at 7pm - NPO at midnight
--- NOTE | 2023-02-15 22:37 | ED.NURSE ---
nurse to nurse report given to Estrella LOPEZ in OB. Patient going to room 226.
[2023-02-15 22:44] VITALS: BP 115/77; PULSE 91; RESP 16
[2023-02-15 22:50] VITALS: BP 118/77; PULSE 66; RESP 18; TEMP 36.6; O2SAT 96
[2023-02-15] MEDS: CLINDAMYCIN 900 MG/50 ML-D5W IVPB (23:08)
[2023-02-16] VITALS (20 sets, daily range): BP systolic 75–112; BP diastolic 54–76; PULSE 52–82; RESP 14–16; TEMP 36.5–36.8; O2SAT 94–98
[2023-02-16] MEDS: GENTAMICIN 330 MG in 0.9 % SODIUM CHLORIDE 100 ml 100 ML 108.25 MG IVPB (00:41)
[2023-02-16] MEDS: CLINDAMYCIN 900 MG/50 ML-D5W IVPB (07:29)
[2023-02-16] MEDS: IBUPROFEN 600 MG TABLET PO ×2 (07:34→20:11)
--- NOTE | 2023-02-16 08:25 | PM.GYNPNNOR ---
Progress Note: A&P Assessment and plan (1) Retained products of conception: Status: Acute Assessment and Plan: On day 11 after normal spontaneous vaginal delivery at term, complicated by hemorrhage. Also with acute endomyometritis diagnosed based on foul-smelling discharge and uterine tenderness. She has been maintained on gentamicin and clindamycin since admission yesterday. Plan is for suction uterine curettage this morning. Consent form has previously been reviewed with and signed by the patient and Dr. Mandel. We again discussed blood transfusion. Bailee is open to blood transfusion if needed for life-saving purposes. She would prefer this as a last resort. I reassured her that I would not use this intervention casually. (2) Acute endomyometritis: Status: Acute Assessment and Plan: Given that I am unable to follow clinical progression based on vital signs alone, I favor maintenance of inpatient hospitalization until tomorrow, to receive an additional dose of gentamicin and clindamycin. NAVAL ARCHITECT SPECIALIST- PN:Subj Non-OR Subjective Date Seen: 02/16/23 Interval history: Bailee reports an improvement in pain. She has scant bleeding. She has been maintained on gentamicin and clindamycin. She has decided that she is open to blood transfusion in the case of medical necessity. NAVAL ARCHITECT SPECIALIST-PN: Obj Exam Physical Exam: Vital signs: Temp Pulse Resp BP Pulse Ox O2 Del Method 98.0 F 71 16 112/76 96 Room Air 02/16/23 07:43 02/16/23 07:43 02/16/23 07:43 02/16/23 07:43 02/16/23 07:43 02/16/23 07:43 Narrative: General: Pleasant, no acute distress Heart: Regular rate and rhythm, no murmur or gallop Lungs: Clear to auscultation bilaterally Abdomen: Soft, nontender, fundus well below umbilicus NAVAL ARCHITECT SPECIALIST - PN: Obj Data Labs Labs: Laboratory Results - last 24 hr 02/15/23 02/15/23 21:30 23:30 WBC 6.33 RBC 5.20 Hgb 13.1 Hct 42.0 MCV 81 MCH 25 L MCHC 31 L RDW Coeff of Efraín 14.5 Plt Count 277 Neut % (Auto) 56.5 Lymph % (Auto) 31.6 [place] % (Auto) 8.1 Eos % (Auto) 2.8 Baso % (Auto) 0.8 Neut # (Auto) 3.58 Lymph # (Auto) 2.00 [place] # (Auto) 0.50 Eos # (Auto) 0.18 Baso # (Auto) 0.05 Abs Immat Gran (auto) 0.01 Imm/Tot Granulo (auto) 0.2 Sodium 138 Potassium 3.9 Chloride 107 Carbon Dioxide 25 BUN 19 Creatinine 0.8 Estimated Creat Clear 94.51 Estimated GFR 100 Glucose 98 Lactate 1.2 Calcium 9.2 Total Bilirubin 0.4 AST 26 ALT 34 Alkaline Phosphatase 96 C-Reactive Protein 1.1 H Total Protein 7.3 Albumin 4.2 Blood Type B Negative Antibody Screen NEGATIVE
[2023-02-16] MEDS: ESCITALOPRAM 10 MG TABLET PO ×2 (09:00→21:54)
--- NOTE | 2023-02-16 09:09 | W.ANESCHARGE ---
Anesthesia Charges Start Date/Time Anesthesia Start Date: 02/16/23 Anesthesia Start Time: 09:01 Stop Date/Time Anesthesia Stop Date: 02/16/23 Anesthesia Stop Time: 10:10
--- NOTE | 2023-02-16 09:32 | W.ANESCHARGE ---
Anesthesia Charges Start Date/Time Anesthesia Start Date: 02/16/23 Anesthesia Start Time: 09:01 Stop Date/Time Anesthesia Stop Date: 02/16/23 Anesthesia Stop Time: 10:10
[2023-02-16] MEDS: miSOPROStoL 800 MCG/4 TABLET PR (09:37)
--- NOTE | 2023-02-16 10:38 | P.GYNPRC_ITS ---
Procedure Note Date of procedure: 02/16/23 Pre-op diagnosis: Suspected retained placenta 11 days after , endometritis Post-op diagnosis: other (Uterine atony) Procedure: suction uterine curettage under ultrasound guidance Placement of Bakri balloon Anesthesia: MAC Complications: Heavy bleeding in the setting of uterine atony encountered near the end the procedure, requiring use of multiple uterotonics and placement of Bakri balloon Surgeon: Monica Melendez MD Estimated blood loss (mL): 400 IV fluids (mL): 700 Urine Output (mL): 25 Pathology: specimen obtained, sent to pathology Condition: stable Disposition: floor Findings: 1. Upon exam under anesthesia, there was suture extending from the anterior perineal body, where the repaired perineal laceration was noted to be well healed. The vagina and cervix were normal in appearance. The cervix was slightly dilated. Uterus was anteverted and mobile, approximately 12 weeks size . 2. Upon ultrasonography performed throughout the procedure, there was a thickened and heterogeneous endometrial stripe at the beginning of the procedure, which resolved by the end of the procedure, showing a uniform endometrial stripe with blood within the canal. 3. Uterine atony was noted after completion of the suction curettage. Procedure Description: Patient was taken to the operating with IV running. She had been receiving gentamicin and clindamycin for treatment of endometritis, with her last dose of clindamycin a few hours before the procedure. She was placed in dorsal lithotomy position. Monitored anesthesia care was administered. She was prepped and draped in the usual sterile fashion. Her bladder was straight catheterized. Exam under anesthesia was performed for the above-noted findings. Speculum was inserted. Cervix was grasped along its anterior lip with an Allis clamp. The cervix was easily dilated to 12 [place]. A size 11 rigid suction cannula was then passed through the cervix to the uterine fundus. Suction was applied, and the suction cannula was withdrawn along the path of insertion. This was repeated several more times, without obvious return of products of conception on the last pass. Much clotted blood was removed in this way. Review of ultrasound images revealed a thin endometrial stripe. The Allis clamp was removed from the anterior lip the cervix. However, bleeding continued to be brisk. Patient was treated with uterine massage, IM Pitocin, IM Methergine, IM Hemabate, 800 mcg rectal misoprostol, and 1 g of tranexamic acid. When bleeding continued, Bakri balloon was placed. The cervix was grasped along the anterior lip with ring forceps. The deflated Bakri balloon was inserted to the fundus, in appropriate location was visualized on ultrasound. The Bakri balloon was inflated to 240 mL. Bleeding ceased. The ring forcep was removed from the cervix and the bag was attached to the Bakri balloon. Vaginal packing was placed below this. Sharif catheter was also placed. Patient tolerated procedure well and was taken recovery area in stable condition.
[2023-02-16] MEDS: LACTATED RINGERS 1000 ML 1,000 ML 125 ML IV (11:03)
[2023-02-16] MEDS: AMPICILLIN/SULBACTAM 3 GM in 0.9 % SODIUM CHLORIDE Mini-bag 100 ML IVPB ×2 (13:51→19:30)
[2023-02-16 15:08] LABS: Basophils Absolute Auto 0.03 K/uL (0.00-0.30); Basophils Percent Auto 0.3 % (0.0-3.0); Hematocrit 38.9 % (33.0-51.0); Hemoglobin* 12.4 gm/dL (12.0-16.0); Lymphocytes Percent Auto 6.9 % (20-44); Mean Corpuscular HGB Conc 32 gm/dL (32-36); Mean Corpuscular Hemoglobin 26 pg (26-34); Mean Corpuscular Volume 80 fL (80-100); Monocytes Percent Auto 0.9 % (0.0-11.0); Neutrophils Percent Auto 90.9 % (42.0-72.0); Platelet Count* 262 K/uL (140-440); RDW Coefficient of Variation % 14.3 % (11.5-15.5); Red Blood Count 4.86 m/uL (4.00-5.20); White Blood Count* 10.36 K/uL (4.50-11.00)
[2023-02-16 15:12] LABS: Slide Review Reflex No
--- NOTE | 2023-02-16 16:24 | PM.GYNPNPO ---
COUNSELING CENTER MANAGER - A/P Assessment and plan (1) Retained products of conception: Status: Acute (2) Acute endomyometritis: Status: Acute Assessment and Plan: Continue Unasyn overnight. Repeat complete blood count in the morning. Provided that she remains afebrile and feeling well, I anticipate discharge tomorrow. (3) Uterine atony: Status: Acute Assessment and Plan: Occurring after suction curettage, treated with oxytocin, 1 g IV tranexamic acid, Hemabate, 800 mcg rectal misoprostol, Methergine, and placement of Bakri balloon. Her hemoglobin is completely normal. Given this, I favor removal of vaginal packing and Bakri balloon later this afternoon. She can then have Sharif catheter discontinued. Postoperative Procedures: Procedures Operation Date: 02/16/23 08:55 Actual Procedure Side Surgeon p Suction Dilatation and Curettage Under Ultrasound Guidance and Placement of Bakri Balloon Monica Melendez MD Postoperative status: doing well Time Spent With Patient Time: Total time spent is greater than 50% in coordination of care (as documented) at patient's floor/unit and/or counseling patient: Time with patient: less than 15 minutes COUNSELING CENTER MANAGER- PN:Subj Post-Op Subjective Date Seen: 02/16/23 Interval history: Bailee reports minimal pain. She has been switched to Unasyn from gentamicin and clindamycin due to clindamycin shortage. Bakri balloon was placed at 10:00 a.m., immediately after D&C. There were abundant blood clots with D&C specimen, but I am uncertain if there were retained placental fragments. Post Operative Details: Post-operative day number 0: status post suction uterine curettage and placement of Bakri balloon COUNSELING CENTER MANAGER-PN: Obj Exam Physical Exam: Vital signs: Temp Pulse Resp BP Pulse Ox O2 Del Method 98.2 F 63 16 101/66 95 Room Air 02/16/23 16:00 02/16/23 16:00 02/16/23 16:00 02/16/23 16:00 02/16/23 16:02/16/23 16:00 Narrative: In the 1:00 a.m. hour, she did have some lower systolics in the 70s and 80s. Most recently, these have been normal. Urine output has not been measured General: Pleasant, no acute distress, holding her Lower extremities: SCDs in place COUNSELING CENTER MANAGER - PN: Obj Data Labs Labs: Laboratory Results - last 24 hr 02/15/23 02/15/23 02/16/23 21:30 23:30 15:02 WBC 6.33 10.36 RBC 5.20 4.86 Hgb 13.1 12.4 Hct 42.0 38.9 MCV 81 80 MCH 25 L 26 MCHC 31 L 32 RDW Coeff of Efraín 14.5 14.3 Plt Count 277 262 Neut % (Auto) 56.5 90.9 H Lymph % (Auto) 31.6 6.9 L [place] % (Auto) 8.1 0.9 Eos % (Auto) 2.8 0.0 Baso % (Auto) 0.8 0.3 Neut # (Auto) 3.58 9.40 H Lymph # (Auto) 2.00 0.70 L [place] # (Auto) 0.50 0.10 Eos # (Auto) 0.18 0.00 Baso # (Auto) 0.05 0.03 Abs Immat Gran (auto) 0.01 0.10 Imm/Tot Granulo (auto) 0.2 1.0 Sodium 138 Potassium 3.9 Chloride 107 Carbon Dioxide 25 BUN 19 Creatinine 0.8 Estimated Creat Clear 94.51 Estimated GFR 100 Glucose 98 Lactate 1.2 Calcium 9.2 Total Bilirubin 0.4 AST 26 ALT 34 Alkaline Phosphatase 96 C-Reactive Protein 1.1 H Total Protein 7.3 Albumin 4.2 Blood Type B Negative Antibody Screen NEGATIVE
[2023-02-16] MEDS: ACETAMINOPHEN 500 MG TABLET 1000 MG PO (17:22)
[2023-02-16] MEDS: METHYLERGONOVINE MALEATE 0.2 MG/ML INJ IM (19:13)
[2023-02-16] MEDS: DOCUSATE SODIUM 100 MG CAPSULE PO (21:52)
[2023-02-17] MEDS: AMPICILLIN/SULBACTAM 3 GM in 0.9 % SODIUM CHLORIDE Mini-bag 100 ML IVPB ×2 (01:38→07:36)
[2023-02-17] MEDS: METHYLERGONOVINE MALEATE 0.2 MG TABLET PO ×2 (01:38→07:37)
[2023-02-17 03:30] VITALS: BP 99/65; PULSE 69; RESP 15; TEMP 36.8; O2SAT 95
[2023-02-17 07:20] LABS: Basophils Absolute Auto 0.04 K/uL (0.00-0.30); Basophils Percent Auto 0.5 % (0.0-3.0); Eosinophils Absolute Auto 0.04 K/uL (0.00-0.50); Eosinophils Percent Auto 0.5 % (0.0-7.0); Hematocrit 30.5 % (33.0-51.0); Hemoglobin* 9.6 gm/dL (12.0-16.0); Immature Granulocytes Abs Auto 0.01 K/uL (0.00-0.30); Immature Granulocytes Pct Auto 0.1 %; Lymphocytes Absolute Auto 2.03 K/uL (0.90-2.90); Lymphocytes Percent Auto 26.9 % (20-44); Mean Corpuscular HGB Conc 32 gm/dL (32-36); Mean Corpuscular Hemoglobin 26 pg (26-34); Mean Corpuscular Volume 82 fL (80-100); Monocytes Percent Auto 5.7 % (0.0-11.0); Neutrophils Percent Auto 66.3 % (42.0-72.0); Platelet Count* 239 K/uL (140-440); RDW Coefficient of Variation % 14.5 % (11.5-15.5); Red Blood Count 3.73 m/uL (4.00-5.20); White Blood Count* 7.55 K/uL (4.50-11.00)
[2023-02-17 07:22] LABS: Slide Review Reflex No
[2023-02-17] MEDS: ACETAMINOPHEN 500 MG TABLET 1000 MG PO (08:55)
[2023-02-17 08:56] VITALS: BP 95/59; PULSE 70; RESP 16; TEMP 36.7; O2SAT 96
--- NOTE | 2023-02-17 09:19 | PM.GYNDS1 ---
DS: Providers Provider Date of admission: 02/16/23 08:51 Primary care physician: Not a Local Provider Admitting Clinician: Vicki Mandel MD Attending Physician on discharge: Vicki Mandel MD DEICER REPAIRER-Discharge Summary Hospital Course Hospital Course Narrative: Patient is a [] year old admitted on [] for []. Indication for surgery: []. Intraoperative findings were notable for []. She had an uncomplicated surgery. Postoperative course has been uneventful. Vitals have been stable. She has remained afebrile. Today, on postoperative day [], she reports the pain is well controlled. She has been able to ambulate Without difficulty. She is tolerating regular diet. She is passing flatus. Sharif catheter has been removed, and she is voiding without difficulty. Hospital Course: Will initiate workup with labs and a pelvic ultrasound. Certainly retained products of conception as well as infection or possible etiologies here. Is doubtful that this is appendicitis but may need to consider advanced imaging with CT if we are not finding anything with the pelvic ultrasound. She declines anything for pain at this time. If we really do need to proceed with urinalysis, may need to do in an out collection to obtain a accurate urinalysis. Time Spent with Patient Time attestation: Total time spent providing and/or coordinating discharge services: DEICER REPAIRER - Exam Physical Exam: Vital signs: Temp Pulse Resp BP Pulse Ox O2 Del Method 98.0 F 70 16 95/59 L 96 Room Air 02/17/23 08:56 02/17/23 08:56 02/17/23 08:56 02/17/23 08:56 02/17/23 08:56 02/17/23 08:56 DEICER REPAIRER - DS: Data Data Completed and Pending Completed studies during hospitalization: Procedures Delivery of Products of Conception, External Approach (02/05/23) Drainage of Amniotic Fluid, Therapeutic from Products of Conception, Via Natural or Artificial Opening (02/05/23) Introduction of Other Hormone into Peripheral Vein, Percutaneous Approach (02/05/23) Manual Extraction of Products of Conception, Retained, Via Natural or Artificial Opening (02/05/23) Repair Perineum Skin, External Approach (02/05/23) Transfusion of Nonautologous Red Blood Cells into Peripheral Vein, Percutaneous Approach (02/05/23) Labs on day of discharge: Labs from last 24 hours 02/17/23 02/16/23 06:35 15:02 WBC 7.55 10.36 RBC 3.73 L 4.86 Hgb 9.6 L 12.4 Hct 30.5 L 38.9 MCV 82 80 MCH 26 26 MCHC 32 32 RDW Coeff of Efraín 14.5 14.3 Plt Count 239 262 Neut % (Auto) 66.3 90.9 H Lymph % (Auto) 26.[address] [place] % (Auto) 5.7 0.9 Eos % (Auto) 0.5 0.0 Baso % (Auto) 0.5 0.3 Neut # (Auto) 5.00 9.40 H Lymph # (Auto) 2.[address] [place] # (Auto) 0.40 0.10 Eos # (Auto) 0.04 0.00 Baso # (Auto) 0.04 0.03 Abs Immat Gran (auto) 0.01 0.10 Imm/Tot Granulo (auto) 0.1 1.0 Procedures Procedures: Procedures Operation Date: 02/16/23 08:55 Actual Procedure Side Surgeon p Suction Dilatation and Curettage Under Ultrasound Guidance and Placement of Bakri Balloon Monica Melendez MD Discharge Plan Discharge Disposition: Home, Self-Care Date of Admission: 02/16/23 08:51 Attending Provider on Discharge: Greta Morris Primary Care Provider: Provider,Not a Local Condition: Stable Discharge Medications: Continued ibuprofen 600 mg Tablet 600 mg PO Q6H PRNQty: 30 0RF docusate sodium 100 mg capsule 100 mg PO BID Qty: 100 0RF escitalopram oxalate 10 mg Tablet 10 mg PO DAILY Qty: 90 0RF Patient Education: Deep Sedation (DC) Follow Up Appointments: Provider,Not a Local [Primary Care Provider] - [facility]: [facility] Inst[facility]
--- NOTE | 2023-02-17 09:22 | PM.GYNDS1 ---
DS: Providers Provider Time Seen by Provider: 08:15 Date Seen: 02/17/23 Date of admission: 02/16/23 08:51 Primary care physician: Not a Local Provider Admitting Clinician: Vicki Mandel MD Attending Physician on discharge: Greta Morris MD Date of Discharge: 02/17/23 DS: Diagnosis Discharge Diagnosis (1) Retained products of conception: Status: Acute (2) Acute endomyometritis: Status: Acute DIRECTOR INTERNAL AUDIT-Discharge Summary Hospital Course Hospital Course Narrative: Patient is a 33 year old admitted on 02/16/2023 for postoperative care following a suction curettage for retained products of conception and acute endomyometritis, 11 days following vaginal delivery complicated by acute hemorrhage. Indication for surgery: Retained products of conception and acute endomyometritis. Intraoperative findings were notable for uterine atony. She had an uncomplicated surgery. Postoperative course has been uneventful. Vitals have been stable. She has remained afebrile. Today, on postoperative day 1, she reports the pain is well controlled. She has been able to ambulate Without difficulty. She is tolerating regular diet. She is having some light vaginal bleeding, not feeling any pads. Hospital Course: She has been afebrile and her vital signs remained stable. Postoperative labs: Hemoglobin 9.6, platelets 239, fibrinogen 405, normal INR and PTT. Time Spent with Patient Time attestation: Total time spent providing and/or coordinating discharge services: Time spent: Less than 30 minutes DIRECTOR INTERNAL AUDIT - Exam Physical Exam: Vital signs: Temp Pulse Resp BP Pulse Ox O2 Del Method 98.0 F 70 16 95/59 L 96 Room Air 02/17/23 08:56 02/17/23 08:56 02/17/23 08:56 02/17/23 08:56 02/17/23 08:56 02/17/23 08:56 Constitutional: Constitutional: no acute distress Routine Respiratory Exam: Respiratory: Present CTA bilaterally Routine Cardiovascular Exam: Cardiovascular: Present RRR Routine Abdominal Exam: Comments: Fundus is firm, nontender. Routine Extremities Exam: Extremities: Present normal inspection DIRECTOR INTERNAL AUDIT - DS: Data Data Completed and Pending Completed studies during hospitalization: Procedures Delivery of Products of Conception, External Approach (02/05/23) Drainage of Amniotic Fluid, Therapeutic from Products of Conception, Via Natural or Artificial Opening (02/05/23) Introduction of Other Hormone into Peripheral Vein, Percutaneous Approach (02/05/23) Manual Extraction of Products of Conception, Retained, Via Natural or Artificial Opening (02/05/23) Repair Perineum Skin, External Approach (02/05/23) Transfusion of Nonautologous Red Blood Cells into Peripheral Vein, Percutaneous Approach (02/05/23) Labs on day of discharge: Labs from last 24 hours 02/17/23 02/16/23 06:35 15:02 WBC 7.55 10.36 RBC 3.73 L 4.86 Hgb 9.6 L 12.4 Hct 30.5 L 38.9 MCV 82 80 MCH 26 26 MCHC 32 32 RDW Coeff of Efraín 14.5 14.3 Plt Count 239 262 Neut % (Auto) 66.3 90.9 H Lymph % (Auto) 26.9 6.9 L [place] % (Auto) 5.7 0.9 Eos % (Auto) 0.5 0.0 Baso % (Auto) 0.5 0.3 Neut # (Auto) 5.00 9.40 H Lymph # (Auto) 2.03 0.70 L [place] # (Auto) 0.40 0.10 Eos # (Auto) 0.04 0.00 Baso # (Auto) 0.04 0.03 Abs Immat Gran (auto) 0.01 0.10 Imm/Tot Granulo (auto) 0.1 1.0 Procedures Procedures: Procedures Operation Date: 02/16/23 08:55 Actual Procedure Side Surgeon p Suction Dilatation and Curettage Under Ultrasound Guidance and Placement of Bakri Balloon Monica Melendez MD Discharge Plan Discharge Disposition: Home, Self-Care Date of Admission: 02/16/23 08:51 Attending Provider on Discharge: Greta Morris Primary Care Provider: Provider,Not a Local Condition: Stable Anticipated Discharge Date/Time: 02/17/23 12:29 Discharge Medications: Continued ibuprofen 600 mg Tablet 600 mg PO Q6H PRNQty: 30 0RF docusate sodium 100 mg capsule 100 mg PO BID Qty: 100 0RF escitalopram oxalate 10 mg Tablet 10 mg PO DAILY Qty: 90 0RF Discharge Orders: Discharge Order (Routine); Ordered 02/17/23 Ordered By: Greta Morris Patient Education: Deep Sedation (DC), Dilation and Curettage (DC) Activity Level: Activity as Tolerated Discharge Diet: Regular Follow Up Appointments: Provider,Not a Local [Primary Care Provider] - Forms: [facility] Info Instructions
--- NOTE | 2023-02-22 10:10 | SUR.PHASEI ---
Reviewed charting location with Nakia Kim RN. Pt resumed care as OB patient after OR, not Phase I.
== END 2023-02-17 13:22 | disposition home or self-care (01) | DRG 769 ==
LOC: ED 22:40 → OB 02-16 06:50 → OR 02-16 09:06 → OB 02-16 09:08
PROVIDERS: Obstetrics & Gynecology; Admitting Provider Obstetrics & Gynecology; Emergency Provider Family Medicine; Visit Provider Obstetrics & Gynecology
PROC: 10D17ZZ Extraction of Products of Conception, Retained, Via Natural or Artificial Opening (ICD-10-PCS; principal; 2023-02-16 08:45)
DX: O72.2 Delayed and secondary postpartum hemorrhage (principal); O86.12 Endometritis following delivery; R10.2 Pelvic and perineal pain
CPT/HCPCS: 00940; 01965; 36415; 76856; 76857; 76998; 80053; 83605; 85025; 86140; 86850; 86900; 86901; 88305; 88307; 93976; 99284; 99285; A9270; J0295; J1100; J1580; J1885; J2210; J2250; J2371; J2405; J2590; J2704; J3010; J7120; S0077

== ENCOUNTER 2023-06-21 14:37 | Outpatient (CLI) | payer OTHER, SELFPAY ==
--- NOTE | 2023-06-21 17:00 | W.PM.LAC.MC ---
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 Watts Reason for Consult Reason for Consult: concern for supply Past Experience Past Experience: Yes (nursed her older child over one year) Current Frequency of Day Feedings: baby has about 7 feedings/day, three of those are bottle feeds at daycare Both Breasts: Yes Suck: strong Latch: wide Length of Time: 5 - 7 minutes/side Pumping Pumping: Yes (pumps 2 - 3 times/day when at work) Quantity Pumped: was 10 oz total/day, now about 4 oz total/day Supplementing EMB Supplement: Yes (baby takes 2 - 3 oz bottles TID at daycare) Formula Supplement: No Baby Elimination Number of Wet Diapers a Day: 4 - 6/day Number of BM a Day: 2 - 4/day Breast/Nipple Condition Breast Information: WNL Maternal Nipple Condition - Left: Common Nipple Maternal Nipple Condition - Right: Common Nipple Onsite Pre-Feed weight: 6.784 kg Post-Feed weight: 6.87 kg Milk Transferred (mL): 86 Assessments/Interventions Assessments/Interventions: Met with mom and this now 4.5 month old baby for consult. Mom reports baby is nursing about 7 times/24 hours when she's home with her. When she works, baby nurses about 4 times/day and get 3 bottles of EBM at daycare, 2 - 3 oz each. Up until last week, mom has been easily able to pump 10 oz/day for baby using her new Spectra pump. This is just a little more than what baby has been taking so mom only pumps that much. Last week mom reports the amount she was able to pump dropped significantly- one day she was only able to pump 6 oz total, then the next day it was 3 oz total, then then next day she didn't get anything. Mom reports over the weekend she pumped a few times, but was only able to get 4 oz from the right side a few times and nothing from the left side. She denies any big changes/stress at home/with family, denies any illness/injury, has not started control, has not had her period (does report cramping). Over the weekend on advice from friend started drinking coconut water and taking a calcium & magnesium supplement to help boost supply. Per mom baby has equal ROM when turning her head and moving her extremities; states she's just learned to roll from back to tummy. Her upper frenulum was assessed and it's not difficult to flange her upper lip, but the frenulum is thicker than normal. She wouldn't suck on a finger but has good lateral movement with her tongue. Her lower frenulum appears to be WNL. Mom nursed baby on both sides for about 10 minutes total. The latch was fairly wide and mom was comfortable. Baby transferred 86 ml. She's gained 26 grams/day since her 4 month WCC on 06/15 and she's tracking along the 50th percentile on the growth chart. Plan: 1. Suggested mom try and add in an extra nursing session daily or at least on the weekend. 2. A smaller flange size was suggested and mom is going to get new tubing, diaphragm, and duckbill for the pump. 3. Suggested nipple stimulation and breast massage before she starts pumping to help elicit a let down. 4. Suggested new pumping pattern of lower suction in the massage phase, then gradually increasing the suction during the expression phase (never out of comfortable range). As the flow slows go back to massage or shut the pump off for a minute, then start again. 5. Try breast compression while pumping and end with a few minutes of hand expression. 6. Reviewed herbal supplements she could try and encouraged her to stay hydrated. 7. Will f/u with her by phone on 06/28. If no improvement, could suggest body work. Meds Home Medications and Allergies Home Medications Medication Instructions Recorded Confirmed Type docosahexaenoic acid 200 mg mg PO 02/19/23 04/28/23 History capsule ( DHA) Allergies Allergy/AdvReac Type Severity Reaction Status Date / Time chlorhexidine Allergy Mild rash, Verified 04/28/23 15:11 swelling, redness
== END 2023-06-21 14:38 | disposition home or self-care (01) ==
LOC: OB LAC 14:37
PROVIDERS: Visit Provider Obstetrics & Gynecology
DX: Z39.1 Encounter for care and examination of lactating mother (principal)
CPT/HCPCS: 99211

== ENCOUNTER 2023-08-09 13:00 | Outpatient (RCR) | payer BC, OTHER, SELFPAY | END 2023-11-22 12:57 | disposition home or self-care (01) | PROVIDERS: Visit Provider Physician Assistant | DX: N81.89 Other female genital prolapse (principal); Z51.89 Encounter for other specified aftercare | CPT/HCPCS: 97110; 97112; 97140; 97161; 97535 ==